=== PATIENT | female | born 1965 | race African-American/Black ===

== ENCOUNTER 2016-10-03 10:16 | Day surgery (SDC) | payer MEDICARE, OTHER ==
[2016-09-29 15:41] VITALS: BMI 35.5
[~2016-10-03 10:16] MED LIST: LACTATED RINGERS 1,000 ML IV SCH
[2016-10-03] MEDS ORDERED: LIDOCAINE 1% 20 ML VIAL (10MG/ML) FOR IV START INTRADERMA ONE (10:30)
[2016-10-03 10:41] VITALS: TEMP 97.9
[2016-10-03] MEDS ORDERED: LIDOCAINE 1% INJ 10MG/ML (20 ML MDV) ONE (11:43)
[2016-10-03] MEDS ORDERED: PROPOFOL 10 MG/ML 20 ML VIAL IV ONE (11:43)
--- NOTE | 2016-10-03 12:08 | P.PCN ---
Date of Procedure: 10/03/16 Procedure(s) Performed: Procedure: Total colonoscopy. Preoperative diagnosis: Change in bowel habits. Postoperative diagnosis: Exam within normal limits. Preparation: HalfLytely prep. Sedation: Was provided by anesthesia. Brief clinical history: The patient is a 51-year-old female who is referred for this evaluation because of some change in bowel habits in the form of occasional looser stools. She has rare episodes of bleeding per rectum, mostly on the toilet tissue. She has no anemia or family history of colon cancer. This would be her first colonoscopy. Procedure: With the patient on her left lateral decubitus position and after informed consent and adequate sedation, the perianal area was inspected and it did not show any fissures or fistulas. There were no masses felt on digital rectal examination. The Olympus CFQ 160L video colonoscope was then inserted in the rectum in the usual fashion and advanced to the cecum. The mucosa appeared healthy. No polyps or tumors were seen or any obvious diverticular disease or other pathology. I retroflexed the endoscope in the rectum before the endoscope was withdrawn. Anal papillae were slightly prominent but there was no bleeding or other pathology. The patient tolerated the procedure well. Plan: The patient was reassured. Discussed dietary measures. In the absence of family history of colon cancer or findings of polyps today, I recommended repeat exam in 10 years. She will follow-up with you as planned.
[2016-10-03 12:55] VITALS: BP 118/67; PULSE 46; RESP 18
== END 2016-10-03 12:57 | disposition home or self-care (01) ==
LOC: ORWHC2ENDO 10:16
DX: R19.4 Change in bowel habit (principal); K62.5 Hemorrhage of anus and rectum; I10 Essential (primary) hypertension; F17.200 Nicotine dependence, unspecified, uncomplicated; F41.9 Anxiety disorder, unspecified; Z79.899 Other long term (current) drug therapy
CPT/HCPCS: 45378; J2001; J2704

== ENCOUNTER 2016-11-26 15:18 | Emergency (ER) | payer MEDICARE, OTHER ==
[2016-11-26 15:26] VITALS: RESP 18
[2016-11-26] MEDS ORDERED: SODIUM CHLORIDE 0.9% 1,000 ML IV STA (15:52)
[2016-11-26] MEDS ORDERED: IPRATROPIUM-ALBUTEROL 3 ML NEB INHALATION STA (15:52)
[2016-11-26] MEDS ORDERED: methylPREDNISolone SOD SUCCI 125 MG/2 ML VIAL IV STA (15:52)
[2016-11-26 16:16] LABS: Basophils % (A) 1 %; CH 32.4; CHCM 38.4; Eosinophils # (A) 0.4 k/uL (0-0.7); Eosinophils % (A) 5 %; HCT 33.2 % (34.0-46.0); HDW 2.54; HGB 12.1 gm/dL (11.4-16.0); Hyperchromasia Slight; Luc # (Auto) 0.21; Luc % (Auto) 3; Lymphocytes # (A) 2.9 k/uL (1.0-4.8); Lymphocytes % (A) 40 %; MCH 30.9 pg (25.0-35.0); MCHC 36.6 g/dL (31.0-37.0); MCV 84.5 fL (80.0-100.0); Mean Platelet Volume 7.4; Monocytes # (A) 0.5 k/uL (0-1.0); Monocytes % (A) 6 %; Neutrophils # (A) 3.3 k/uL (1.3-7.7); Neutrophils % (A) 45 %; RBC 3.93 m/uL (3.80-5.40); RDW 12.6 % (11.5-15.5); WBC 7.3 k/uL (3.8-10.6); WBC (Perox) 7.11
[2016-11-26 16:36] LABS: ALT 42 U/L (9-52); AST 30 U/L (14-36); Alkaline Phosphatase 79 U/L (38-126); Anion Gap 9 mmol/L; Blood Urea Nitrogen 16 mg/dL (7-17); Calcium 9.6 mg/dL (8.4-10.2); Carbon Dioxide 24 mmol/L (22-30); Chloride 108 mmol/L (98-107); Glucose 98 mg/dL (74-99); Non-African American GFR(MDRD) >60 (>60 ml/min/1.73 sqM); Potassium 4.1 mmol/L (3.5-5.1); Sodium 141 mmol/L (137-145); Total Protein 7.8 g/dL (6.3-8.2)
[2016-11-26] MEDS ORDERED: BENZONATATE 100 MG CAP PO STA (16:39)
--- NOTE | 2016-11-26 16:39 | ED ---
General Adult HPI - General Chief complaint: Upper Respiratory Infection Stated complaint: SOB Time Seen by Provider: 11/26/16 15:48 Source: patient, RN notes reviewed Mode of arrival: ambulatory Limitations: no limitations - History of Present Illness Initial comments: 51-year-old female presents to the emergency department with a chief complaint of cough. Patient states she's had a cough for about the last week or so. Patient states that she is not getting much production with her cough. Patient states that she saw her doctor Antibiotics early cough continues. Patient states she went for an x-ray today and they came here to be evaluated for the cough. Patient states that when she coughs she has some pulling in her ribs and chest area. He states if she moves she has a sling to his chest feels resorted cough is becoming very irritated with her symptoms. Patient states she hasn't had any fever chills this. Patient denies any nausea vomiting. Patient denies any specific chest pain just posterior breath. Patient states she is currently still smoking. Patient states that she wanted the cough to be evaluated and that is why she is here today. Patient states that she is not currently having any other symptoms. Patient denies any recent fever, chills, shortness of breath, chest pain, back pain, abdominal pain, nausea vomiting, numbness or tingling, dysuria or hematuria, constipation or diarrhea, headaches or visual changes, or any other current symptoms. - Related Data Home Medications Medication Instructions Recorded Confirmed Pregabalin [Lyrica] 50 mg PO DAILY 09/29/16 11/26/16 Albuterol Sulfate [Proair Hfa] 2 puff INHALATION RT-Q6H PRN 11/26/16 11/26/16 Hydrochlorothiazide [Hydrodiuril] 25 mg PO DAILY 11/26/16 11/26/16 Multivitamins, Thera [Multivitamin 1 tab PO DAILY 11/26/16 11/26/16 (formulary)] Previous Rx's Medication Instructions Recorded Albuterol Inhaler [Ventolin Hfa 1 - 2 puff INHALATION Q4-6H PRN #1 11/26/16 Inhaler] inhaler Albuterol Nebulized [Ventolin 2.5 mg INHALATION Q4H #20 nebu 11/26/16 Nebulized] predniSONE 50 mg PO DAILY #5 tab 05/21/17 Allergies Allergy/AdvReac Type Severity Reaction Status Date / Time No Known Allergies Allergy Verified 11/26/16 15:51 Review of Systems ROS Statement: Those systems with pertinent positive or pertinent negative responses have been documented in the HPI. ROS Other: All systems not noted in ROS Statement are negative. Past Medical History Past Medical History: Hypertension, Musculoskeletal Disorder History of Any Multi-Drug Resistant Organisms: None Reported Past Surgical History: Appendectomy, Tubal Ligation Past Anesthesia/Blood Transfusion Reactions: No Reported Reaction Past Psychological History: Depression Smoking Status: Current every day smoker Past Alcohol Use History: Daily Past Drug Use History: Marijuana - Past Family History Mother Family Medical History: Cancer General Exam - General Exam Comments Initial Comments: General: The patient is awake and alert, in no distress, and does not appear acutely ill. Eye: Pupils are equal, round and reactive to light, extra-ocular movements are intact; there is normal conjunctiva bilaterally. No signs of icterus. Ears, nose, mouth and throat: There are moist mucous membranes and no oral lesions. Neck: The neck is supple, there is no tenderness. Cardiovascular: There is a regular rate and rhythm. No murmur, rub or gallop is appreciated. Respiratory: Lungs are clear to auscultation, respirations are non-labored, breath sounds are equal. No wheezes, stridor, rales, or rhonchi. Gastrointestinal: Soft, non-distended, non-tender abdomen without masses or organomegaly noted. There is no rebound or guarding present. No CVA tenderness. Bowel sounds are unremarkable. Back: There is no tenderness to palpation in the midline. There is no obvious deformity. No rashes noted. Musculoskeletal: Normal ROM, no tenderness, There is no pedal edema. There is no calf tenderness or swelling. Sensation intact. Pulses equal bilaterally 2+. Neurological: CN II-XII intact, There are no obvious motor or sensory deficits. Coordination appears grossly intact. Speech is normal. Skin: Skin is warm and dry and no rashes or lesions are noted. Psychiatric: Cooperative, appropriate mood & affect, normal judgment. Limitations: no limitations Course Vital Signs 11/26/16 11/26/16 11/26/16 15:21 16:03 16:13 Temperature 98.2 F Pulse Rate 61 88 88 Respiratory 18 Rate Blood Pressure 134/65 O2 Sat by Pulse 100 Oximetry Medical Decision Making - Medical Decision Making 51-year-old female presents complaining of cough. Patient's chest x-ray does out patiently lab work was reviewed. At this time patient is a much better after breathing treatment. We discussed patient most likely suffering from acute bronchitis. We discussed with [facility] AND GIVE HER A NEBULIZER FOR HOME WITH BREATHING TREATMENTS. WE DISCUSSED RETURN PARAMETERS AND FOLLOW-UP AND ALL PATIENT'S QUESTIONS. SHE STATED THAT SHE UNDERSTOOD AND SHE IS IN AGREEMENT WITH PLAN. SHE'LL BE DISCHARGED HOME. - Lab Data Result diagrams: 11/26/16 16:00 11/26/16 16:00 Lab Results 11/26/16 11/26/16 Range/Units 16:00 16:00 WBC 7.3 (3.8-10.6) k/uL RBC 3.93 (3.80-5.40) m/uL Hgb 12.1 (11.4-16.0) gm/dL Hct 33.2 L (34.0-46.0) % MCV 84.5 (80.0-100.0) fL MCH 30.9 (25.0-35.0) pg MCHC 36.6 (31.0-37.0) g/dL RDW 12.6 (11.5-15.5) % Plt Count 260 (150-450) k/uL Neutrophils % 45 % Lymphocytes % 40 % Monocytes % 6 % Eosinophils % 5 % Basophils % 1 % Neutrophils # 3.3 (1.3-7.7) k/uL Lymphocytes # 2.9 (1.0-4.8) k/uL Monocytes # 0.5 (0-1.0) k/uL Eosinophils # 0.4 (0-0.7) k/uL Basophils # 0.0 (0-0.2) k/uL Hyperchromasia Slight Sodium 141 (137-145) mmol/L Potassium 4.1 (3.5-5.1) mmol/L Chloride 108 H (98-107) mmol/L Carbon Dioxide 24 (22-30) mmol/L Anion Gap 9 mmol/L BUN 16 (7-17) mg/dL Creatinine 0.76 (0.52-1.04) mg/dL Est GFR (MDRD) Af Amer >60 (>60 ml/min/1.73 sqM) Est GFR (MDRD) Non-Af >60 (>60 ml/min/1.73 sqM) Glucose 98 (74-99) mg/dL Calcium 9.6 (8.4-10.2) mg/dL Total Bilirubin 1.0 (0.2-1.3) mg/dL AST 30 (14-36) U/L ALT 42 (9-52) U/L Alkaline Phosphatase 79 (38-126) U/L Total Protein 7.8 (6.3-8.2) g/dL Albumin 4.1 (3.5-5.0) g/dL - EKG Data -: EKG Interpreted by Me 11/26/16 16:38 Sinus bradycardia with sinus arrhythmia 54 bpm, normal axis, no atopy, no S-T depressions or elevations, - Radiology Data Radiology results: report reviewed, image reviewed Disposition Clinical Impression: Acute bronchitis Disposition: HOME SELF-CARE Condition: Stable Instructions: Acute Bronchitis (ED) Additional Instructions: Please use medication as discussed. Please follow up with family doctor if symptoms have not improved over the next two days. Please return to the emergency room if your symptoms increase or worsen or for any other concerns. Prescriptions: Albuterol Inhaler [Ventolin Hfa Inhaler] 1 - 2 puff INHALATION Q4-6H PRN #1 inhaler PRN Reason: Cough Albuterol Nebulized [Ventolin Nebulized] 2.5 mg INHALATION Q4H #20 nebu predniSONE 50 mg PO DAILY #5 tab Referrals: Alejandra Rivera MD [Primary Care Provider] - 1-2 days Time of Disposition: 16:44
[2016-11-26 17:04] VITALS: BP 141/97; PULSE 56; TEMP 98
== END 2016-11-26 17:02 | disposition home or self-care (01) ==
LOC: EC 15:18
DX: J20.9 Acute bronchitis, unspecified (principal); R06.02 Shortness of breath; I10 Essential (primary) hypertension; Z79.899 Other long term (current) drug therapy; F17.200 Nicotine dependence, unspecified, uncomplicated
CPT/HCPCS: 36415; 94640; 80053; 85025; 87040; 99283; 96374; 96361; J2930; 71020; 93005

== ENCOUNTER → 2016-11-26 | Outpatient (CLI) | payer MEDICARE, OTHER ==
--- NOTE | 2016-11-26 16:04 | XR ---
EXAMINATION TYPE: XR chest 2V DATE OF EXAM: 11/26/2016 3:16 PM COMPARISON: NONE INDICATION: Right-sided chest pain TECHNIQUE: 2 view chest x-ray FINDINGS: The heart size is normal. The pulmonary vasculature is normal. The lungs are clear. IMPRESSION: 1. No acute pulmonary process.
== END ==
LOC: RADXRMAIN 14:57
PROVIDERS: ATTEND Internal Medicine
DX: J44.9 Chronic obstructive pulmonary disease, unspecified (principal)
CPT/HCPCS: 71020

== ENCOUNTER 2017-02-15 01:06 | Emergency (ER) | payer MEDICARE, OTHER ==
[2017-02-15 01:13] VITALS: PULSE 54
--- NOTE | 2017-02-15 02:19 | XR ---
EXAM: XR Right Knee, 3 views CLINICAL HISTORY: Pain TECHNIQUE: Three views of the right knee. COMPARISON: No relevant prior studies available. FINDINGS: Bones/joints: Tricompartment degenerative changes. No acute fracture or traumatic malalignment. Small joint effusion. Soft tissues: Unremarkable. IMPRESSION: No acute findings.
--- NOTE | 2017-02-15 02:32 | ED ---
Extremity Problem HPI - General Chief complaint: Extremity Problem,Nontraumatic Stated complaint: Knee Pain Time Seen by Provider: 02/15/17 01:24 Source: patient, RN notes reviewed, old records reviewed Mode of arrival: ambulatory Limitations: no limitations - History of Present Illness Initial comments: This is a 51 year old female with CC of right knee pain for the past evening that has worsened. She reports to having this knee pain before. She reports that she was walking and biking more frequently. Denies any calf pain, denies significant swelling below the knee. She reports some minor swelling with medial upper knee. - Related Data Home Medications Medication Instructions Recorded Confirmed Pregabalin [Lyrica] 50 mg PO DAILY 09/29/16 02/15/17 Albuterol Sulfate [Proair Hfa] 2 puff INHALATION RT-Q6H PRN 11/26/16 02/15/17 Hydrochlorothiazide [Hydrodiuril] 25 mg PO DAILY 11/26/16 02/15/17 Multivitamins, Thera [Multivitamin 1 tab PO DAILY 11/26/16 02/15/17 (formulary)] Albuterol Inhaler [Ventolin Hfa 1 - 2 puff INHALATION Q4-6H PRN 02/13/17 Inhaler] Albuterol Nebulized [Ventolin 2.5 mg INHALATION Q4H PRN 02/13/17 02/15/17 Nebulized] Previous Rx's Medication Instructions Recorded Acetaminophen-Codeine 300-30mg 1 tab PO Q6H PRN #12 tablet 02/15/17 [Tylenol #3] Naproxen 500 mg PO BID #30 tablet 02/15/17 Allergies Allergy/AdvReac Type Severity Reaction Status Date / Time Penicillins Allergy Rash/Hives Verified 02/15/17 11:02 Review of Systems ROS Statement: Those systems with pertinent positive or pertinent negative responses have been documented in the HPI. ROS Other: All systems not noted in ROS Statement are negative. Past Medical History Past Medical History: COPD, GERD/Reflux, Hypertension, Musculoskeletal Disorder , Osteoarthritis (OA) Additional Past Medical History / Comment(s): 'ENLARGED KIDNEY" PER PATIENT , OCCASIONAL BLOOD IN STOOL History of Any Multi-Drug Resistant Organisms: None Reported Past Surgical History: Appendectomy, Tubal Ligation Additional Past Surgical History / Comment(s): COLONOSCOPY Past Anesthesia/Blood Transfusion Reactions: No Reported Reaction Past Psychological History: Depression Smoking Status: Current every day smoker Past Alcohol Use History: Heavy Past Drug Use History: None Reported - Past Family History Mother Family Medical History: Cancer General Exam Limitations: no limitations General appearance: alert, in no apparent distress Head exam: Present: atraumatic, normocephalic, normal inspection Eye exam: Present: normal appearance, PERRL, EOMI. Absent: scleral icterus, conjunctival injection, periorbital swelling ENT exam: Present: normal exam, mucous membranes moist Neck exam: Present: normal inspection. Absent: tenderness, meningismus, lymphadenopathy Respiratory exam: Present: normal lung sounds bilaterally. Absent: respiratory distress, wheezes, rales, rhonchi, stridor Cardiovascular Exam: Present: regular rate, normal rhythm, normal heart sounds. Absent: systolic murmur, diastolic murmur, rubs, gallop, clicks GI/Abdominal exam: Present: soft, normal bowel sounds. Absent: distended, tenderness, guarding, rebound, rigid Extremities exam: Present: normal inspection, full ROM, normal capillary refill. Absent: tenderness, pedal edema, joint swelling, calf tenderness Right Hip exam: Present: normal inspection, full ROM Upper Leg exam: Present: normal inspection, full ROM Knee exam: Present: swelling (minor swelling over medial knee. ). Absent: normal inspection, full ROM Lower Leg exam: Present: normal inspection, full ROM Ankle exam: Present: normal inspection, full ROM Foot/Toe exam: Present: normal inspection, full ROM Neurovascular tendon exam: Present: no vascular compromise Back exam: Present: normal inspection Neurological exam: Present: alert, oriented X3, CN II-XII intact Psychiatric exam: Present: normal affect, normal mood Skin exam: Present: warm, dry, intact, normal color. Absent: rash Course Vital Signs 02/15/17 02/15/17 01:11 03:00 Temperature 97.6 F 97.5 F L Pulse Rate 54 L 54 L Respiratory 18 16 Rate Blood Pressure 137/64 143/69 O2 Sat by Pulse 98 99 Oximetry Medical Decision Making - Medical Decision Making This is a 51 year old female with CC of right knee pain for the past evening that has worsened. She reports to having this knee pain before. She reports that she was walking and biking more frequently. Denies any calf pain, denies significant swelling below the knee. She reports some minor swelling with medial upper knee. Patient has full range of motion of the knee. Minor swelling over medial knee. Patient has no calf tenderness. Patient knee xray is negative for acute process. Patient likely has mensicual irritation due to frequent walking and bicycling. Patient will be discharged with short course of pain medication and motrin. Patient understands treatment plan adn will comply. - Radiology Data Radiology results: report reviewed Xray negative for any acute process. Disposition Clinical Impression: Effusion, right knee Disposition: HOME SELF-CARE Condition: Good Instructions: Knee Sprain (ED), Knee Pain (ED) Additional Instructions: Patient is to rest, ice and elevated 70. Take medications as directed. Return to emergency department if any alarming signs or symptoms occur. Prescriptions: Acetaminophen-Codeine 300-30mg [Tylenol #3] 1 tab PO Q6H PRN #12 tablet PRN Reason: Pain Naproxen 500 mg PO BID #30 tablet Referrals: Alejandra Rivera MD [Primary Care Provider] - 1-2 days Denice Ocampo MD [STAFF PHYSICIAN] - 1-2 days Bon Jiménez MD [STAFF PHYSICIAN] - 1-2 days Time of Disposition: 02:30
[2017-02-15] MEDS ORDERED: ACET/COD 300 MG/30 MG STARTER PACK 6 TAB BTL PO STA (02:42)
[2017-02-15 03:01] VITALS: BP 143/69; RESP 16; TEMP 97.5
== END 2017-02-15 03:01 | disposition home or self-care (01) ==
LOC: EC 01:06
DX: M25.461 Effusion, right knee (principal); I10 Essential (primary) hypertension; F17.200 Nicotine dependence, unspecified, uncomplicated; Z88.0 Allergy status to penicillin; Z79.899 Other long term (current) drug therapy
CPT/HCPCS: 99284

== ENCOUNTER 2017-02-15 09:23 | Day surgery (SDC) | payer MEDICARE, OTHER ==
[2017-02-13 14:39] VITALS: BMI 37.5
[2017-02-15] MEDS ORDERED: PROPOFOL 10 MG/ML 20 ML VIAL IV ONE ×2 (09:48→11:33)
[2017-02-15] MEDS ORDERED: LIDOCAINE 1% INJ 10MG/ML (20 ML MDV) ONE ×2 (09:48→11:33)
[2017-02-15 11:02] VITALS: RESP 16; TEMP 99
[2017-02-15] MEDS ORDERED: LIDOCAINE 1% 20 ML VIAL (10MG/ML) FOR IV START INTRADERMA ONE (11:09)
--- NOTE | 2017-02-15 11:51 | P.PCN ---
Date of Procedure: 02/15/17 Preoperative Diagnosis: Postoperative Diagnosis: Procedure(s) Performed: Procedure: Esophagogastroduodenoscopy and biopsy. Preoperative diagnosis: Abdominal pain. Postoperative diagnosis: 1. Small sliding hiatal hernia with no obvious esophagitis or complicated reflux disease. 2. Mild antral gastritis. Preparation sedation: Was provided by anesthesia. Brief clinical history: The patient is a 51-year-old female who is referred for this evaluation because of persistent issues with abdominal discomfort. She had a colonoscopy in September of this year which was normal. The patient continues to describe burning in her abdomen and after having bowel movements. She is referred for this evaluation for suspected peptic ulcer disease or reflux disease. Procedure: With the patient on her left lateral decubitus position and after informed consent and adequate sedation, I passed the Olympus-GIF 160 video upper endoscope through the cricopharyngeus down the esophagus. GE junction was around 36 cm from the incisors and there was a small sliding hiatal hernia. The esophagus did not show any obvious erosions, ulcers, strictures or Hanson 's esophagus. The endoscope was then passed into the stomach which was insufflated with air and inspected in detail including the retroflex view in the cardia. There was mottling, erythema and submucosal hemorrhage in the antrum in the immediate prepyloric area, but there were no ulcers or erosions. Pyloric channel did not show any ulcers. Duodenal bulb, post bulbar area and descending duodenum appeared within normal limits. Because of her symptoms, I obtained biopsies from the small intestine, in addition to biopsies from the antrum and esophagus then the endoscope was withdrawn. The patient tolerated the procedure well. Plan: The patient was reassured. Will await biopsy results. She will follow- up with you as planned and further plans can be made based on her course and biopsy results. Implants: Indications for Procedure: Operative Findings: Description of Procedure:
[2017-02-15 12:05] VITALS: BP 114/68; PULSE 44
== END 2017-02-15 12:32 | disposition home or self-care (01) ==
LOC: ORWHC2ENDO 09:23
DX: K29.50 Unspecified chronic gastritis without bleeding (principal); K44.9 Diaphragmatic hernia without obstruction or gangrene; K21.9 Gastro-esophageal reflux disease without esophagitis; J44.9 Chronic obstructive pulmonary disease, unspecified; I10 Essential (primary) hypertension; M19.90 Unspecified osteoarthritis, unspecified site; Z88.0 Allergy status to penicillin; Z72.0 Tobacco use; Z79.891 Long term (current) use of opiate analgesic; Z79.899 Other long term (current) drug therapy
CPT/HCPCS: 99284; 88305; 88342; 73562; 43239; J2001; J2704

== ENCOUNTER 2017-04-16 08:55 | Emergency (ER) | payer MEDICARE, OTHER ==
[2017-04-16 09:08] VITALS: RESP 18; TEMP 97.6
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
[2017-04-16 10:19] VITALS: BP 160/86; PULSE 57
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
--- NOTE | 2017-04-18 05:28 | PCN ---
Documentation Clarification OP Dear Tai Britton PA-C Please do addendum to ED report for missing lip laceration length Thank you, Jann Patel Eligibility Supervisor If you have any questions, please contact [facility] at [phone] [facility]
== END 2017-04-16 12:00 | disposition home or self-care (01) ==
LOC: EC 08:55
DX: S02.5XXA Fracture of tooth (traumatic), initial encounter for closed fracture (principal); S01.511A Laceration without foreign body of lip, initial encounter; S00.83XA Contusion of other part of head, initial encounter; M25.561 Pain in right knee; M54.2 Cervicalgia; I10 Essential (primary) hypertension; F17.200 Nicotine dependence, unspecified, uncomplicated; Z79.899 Other long term (current) drug therapy; Z88.0 Allergy status to penicillin; V23.4XXA Motorcycle driver injured in collision with car, pick-up truck or van in traffic accident, initial encounter; Y92.410 Unspecified street and highway as the place of occurrence of the external cause; Y93.89 Activity, other specified
CPT/HCPCS: 72050; 99284

== ENCOUNTER 2017-04-20 16:53 | Emergency (ER) | payer MEDICARE, OTHER ==
[2017-04-20 17:13] VITALS: BP 169/74; PULSE 69; RESP 18; TEMP 98.2
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
--- NOTE | 2017-04-20 17:37 | XR ---
EXAMINATION TYPE: XR knee complete RT DATE OF EXAM: 04/20/2017 COMPARISON: 02/15/2017 HISTORY: Knee pain TECHNIQUE: 3 views FINDINGS: There is narrowing of the medial joint space. There is hypertrophic spurring of the femoral and tibial condyles. There is small knee joint effusion. There is spurring on the patella. I see no fracture. IMPRESSION: Hypertrophic osteoarthritis with joint effusion. No fracture seen. No significant change compared to old exam.
[2017-04-20] MEDS ORDERED: HYDROcodone/APAP 5-325MG 1 EACH TAB PO STA (17:41)
== END 2017-04-20 18:38 | disposition home or self-care (01) ==
LOC: EC 16:53
DX: S00.83XA Contusion of other part of head, initial encounter (principal); M25.561 Pain in right knee; J44.9 Chronic obstructive pulmonary disease, unspecified; K21.9 Gastro-esophageal reflux disease without esophagitis; I10 Essential (primary) hypertension; M19.90 Unspecified osteoarthritis, unspecified site; F32.9 Major depressive disorder, single episode, unspecified; F17.200 Nicotine dependence, unspecified, uncomplicated; Z79.899 Other long term (current) drug therapy; Z88.0 Allergy status to penicillin; V23.4XXA Motorcycle driver injured in collision with car, pick-up truck or van in traffic accident, initial encounter; Y92.410 Unspecified street and highway as the place of occurrence of the external cause
CPT/HCPCS: 99283

== ENCOUNTER → 2017-07-26 | Outpatient (CLI) | payer OTHER ==
--- NOTE | 2017-07-26 13:07 | XR ---
EXAMINATION TYPE: XR hand complete LT DATE OF EXAM: 07/26/2017 COMPARISON: NONE HISTORY: 51-year-old female crush injury to the fifth digit and pain TECHNIQUE: 4 views FINDINGS: There is soft tissue swelling to the tip of the fifth finger. Only on the oblique views, a subtle saba tically oriented lucency is seen involving the distal phalangeal tuft. Otherwise, no displaced fractu re. IMPRESSION: Soft tissue injury to the distal aspect of the fifth finger. A lucency is seen extending vertically t hrough the tuft on the oblique images and a subtle nondisplaced fracture is difficult to exclude.
== END | disposition home or self-care (01) ==
LOC: RADXRMAIN 12:40
PROVIDERS: ATTEND Emergency Medicine
DX: S61.207A Unspecified open wound of left little finger without damage to nail, initial encounter (principal)

== ENCOUNTER → 2017-07-27 | Outpatient (CLI) | payer OTHER ==
--- NOTE | 2017-07-27 13:50 | XR ---
Lumbar spine HISTORY: Back pain 3 views of the lumbar spine Lumbar vertebral bodies show preserved height and alignment. Bone mineralization is reduced. There is multilevel spondylosis and loss of disc height at intervertebral levels especially at L4-5. Sclerosi s present in the posterior elements of the lumbar spine. There are vascular calcifications noted. IMPRESSION: Degenerative disc disease, osteopenia, facet arthropathy.
== END | disposition home or self-care (01) ==
LOC: RADXRMAIN 12:55
PROVIDERS: ATTEND Emergency Medicine
DX: M51.36 Other intervertebral disc degeneration, lumbar region (principal); M46.86 Other specified inflammatory spondylopathies, lumbar region; M85.88 Other specified disorders of bone density and structure, other site
CPT/HCPCS: 72100

== ENCOUNTER 2017-07-28 16:01 | Emergency (ER) | payer MEDICARE, OTHER ==
[2017-07-28] MEDS ORDERED: HYDROcodone/APAP 5-325MG 1 EACH TAB PO STA (16:51)
[2017-07-28] MEDS ORDERED: CYCLOBENZAPRINE 10 MG TAB PO STA (16:51)
--- NOTE | 2017-07-28 16:55 | ED ---
Back Pain HPI - General Chief Complaint: Back Pain/Injury Stated Complaint: IH-Back Pain Time Seen by Provider: 07/28/17 16:40 Source: patient, RN notes reviewed Mode of arrival: ambulatory Limitations: no limitations - History of Present Illness Initial Comments: This a 52-year-old female presents emergency from chief complaint of back pain. Patient had an injury other day was seen at [facility] yesterday had x-rays. Patient complains of low back pain, left hand fifth digit pain. She states that she was given antibiotics, Motrin. States she has small cut her finger. Patient states ibuprofen is not helping her back pain she has worsening pain unrelieved with the medication. Patient denies any bowel bladder incontinence or retention. Denies any abdominal pain. She is wearing back brace because she states that helps. - Related Data Home Medications Medication Instructions Recorded Confirmed Hydrochlorothiazide [Hydrodiuril] 25 mg PO DAILY 11/26/16 04/20/17 Multivitamins, Thera [Multivitamin 1 tab PO DAILY 11/26/16 04/20/17 (formulary)] Albuterol Inhaler [Ventolin Hfa 1 - 2 puff INHALATION Q4-6H PRN 02/13/17 Inhaler] ALPRAZolam [Xanax] 0.5 mg PO DAILY PRN 04/16/17 04/20/17 Baclofen [Lioresal] 10 mg PO HS PRN 04/16/17 04/20/17 HYDROcodone/APAP 5-325MG [[place] 1 tab PO DAILY PRN 04/16/17 04/20/17 5-325] Loperamide [Imodium] 2 mg PO QID PRN 04/16/17 04/20/17 Losartan Potassium [Cozaar] 100 mg PO DAILY 04/16/17 04/20/17 Omeprazole [PriLOSEC] 20 mg PO AC-BID PRN 04/16/17 04/20/17 Pregabalin [Lyrica] 100 mg PO BID 04/16/17 04/20/17 Acetaminophen-Codeine 300-30mg 1 tab PO Q6H PRN 04/20/17 04/20/17 [Tylenol #3] Previous Rx's Medication Instructions Recorded Ibuprofen [Motrin] 600 mg PO Q6HR PRN #30 day 04/16/17 Cyclobenzaprine [Flexeril] 5 mg PO TID PRN #15 tablet 07/28/17 Hydrocodone/Acetaminophen [[place] 1 tab PO Q8HR PRN #15 tab 07/28/17 5-325] Allergies Allergy/AdvReac Type Severity Reaction Status Date / Time Penicillins Allergy Rash/Hives Verified 07/28/17 16:19 Review of Systems ROS Statement: Those systems with pertinent positive or pertinent negative responses have been documented in the HPI. ROS Other: All systems not noted in ROS Statement are negative. Past Medical History Past Medical History: COPD, GERD/Reflux, Hypertension, Musculoskeletal Disorder , Osteoarthritis (OA) Additional Past Medical History / Comment(s): 'ENLARGED KIDNEY" PER PATIENT , OCCASIONAL BLOOD IN STOOL History of Any Multi-Drug Resistant Organisms: None Reported Past Surgical History: Appendectomy, Tubal Ligation Additional Past Surgical History / Comment(s): COLONOSCOPY Past Anesthesia/Blood Transfusion Reactions: No Reported Reaction Past Psychological History: Depression Smoking Status: Current every day smoker Past Alcohol Use History: Occasional Past Drug Use History: Marijuana - Past Family History Mother Family Medical History: Cancer General Exam Limitations: no limitations General appearance: alert, in no apparent distress Respiratory exam: Present: normal lung sounds bilaterally. Absent: respiratory distress, wheezes, rales, rhonchi, stridor Cardiovascular Exam: Present: regular rate, normal rhythm, normal heart sounds. Absent: systolic murmur, diastolic murmur, rubs, gallop, clicks GI/Abdominal exam: Present: soft, normal bowel sounds. Absent: distended, tenderness, guarding, rebound, rigid Back exam: Present: full ROM, tenderness (Tenderness diffusely lumbar region), paraspinal tenderness, other (Pain with bilateral lower extremity movement). Absent: vertebral tenderness Neurological exam: Present: alert, oriented X3, CN II-XII intact, reflexes normal. Absent: motor sensory deficit Skin exam: Present: warm, dry, intact, normal color. Absent: rash Course Vital Signs 07/28/17 16:15 Temperature 97.3 F L Pulse Rate 50 L Respiratory 20 Rate Blood Pressure 147/65 O2 Sat by Pulse 99 Oximetry Medical Decision Making - Medical Decision Making 52-year-old female presented for low back pain. She has had prior exam x-rays reviewed patient has a lumbar strain will be given a short course of pain medication and discharge. Disposition Clinical Impression: Strain of lumbar region Disposition: HOME SELF-CARE Condition: Stable Instructions: Acute Low Back Pain (ED) Additional Instructions: Please return to the Emergency Department if symptoms worsen or any other concerns. Prescriptions: Cyclobenzaprine [Flexeril] 5 mg PO TID PRN #15 tablet PRN Reason: Muscle Spasm Hydrocodone/Acetaminophen [[place] 5-325] 1 tab PO Q8HR PRN #15 tab PRN Reason: Pain Referrals: Alejandra Rivera MD [Primary Care Provider] - 1-2 days Time of Disposition: 16:55
[2017-07-28 17:46] VITALS: BP 130/79; PULSE 80; RESP 16; TEMP 98
== END 2017-07-28 17:45 | disposition home or self-care (01) ==
LOC: EC 16:01
DX: S39.012A Strain of muscle, fascia and tendon of lower back, initial encounter (principal); M79.645 Pain in left finger(s); I10 Essential (primary) hypertension; M19.90 Unspecified osteoarthritis, unspecified site; F17.200 Nicotine dependence, unspecified, uncomplicated; Z79.899 Other long term (current) drug therapy; Z88.0 Allergy status to penicillin; Y92.69 Other specified industrial and construction area as the place of occurrence of the external cause; Y99.0 Civilian activity done for income or pay
CPT/HCPCS: 99283

== ENCOUNTER 2017-08-02 04:23 | Emergency (ER) | payer MEDICARE, OTHER ==
[2017-08-02 04:33] VITALS: TEMP 97.3
[2017-08-02] MEDS ORDERED: ORPHENADRINE 30 MG/ML 2 ML VIAL IM STA (05:00)
[2017-08-02] MEDS ORDERED: KETOROLAC 60 MG/2 ML VIAL IM STA (05:00)
--- NOTE | 2017-08-02 05:33 | CT ---
EXAM: CT Lumbar Spine Without Intravenous Contrast CLINICAL HISTORY: Reason: Pain TECHNIQUE: Axial computed tomography images of the lumbar spine without intravenous contrast. CTDI is 43.60 mGy and DLP is 1274.10 mGy-cm. This CT exam was performed using one or more of the following dose reduction techniques: automated exposure control, adjustment of the mA and/or kV according to patient size, and/or use of iterative reconstruction technique. COMPARISON: 07/27/17 FINDINGS: Disc height loss at L4-5 with posterior disc protrusion. Minimal 2 mm anterolisthesis of L4 on L5. Bilateral facet degenerative changes are seen at this level. Posterior disc protrusion also seen at L5-S1. There is disc height loss at L1-2 with anterior disc spur complex. Prominent anterior syndesmophytes also demonstrated at T11-12 and T12-L1. IMPRESSION: No fracture. Multilevel spondylotic changes with degenerative grade 1 anterolisthesis of L4-5.
--- NOTE | 2017-08-02 05:36 | ED ---
Back Pain HPI - General Chief Complaint: Back Pain/Injury Stated Complaint: FLANK PAIN Time Seen by Provider: 08/02/17 04:37 Source: patient Limitations: no limitations - History of Present Illness Initial Comments: This patient is a 52-year-old woman who states that she is continuing to have back pain today. The patient states that she injured her back at work approximately 6 days ago, when a heavy roll of carpet she was moving fell. She has been seen and had x-rays at that time that were negative. The patient was given prescription for ibuprofen but states this is only helping a little. The patient is denying weakness or numbness of the extremities, change in bladder or bowel function, saddle anesthesia. MD Complaint: back pain -: days(s) Similar Symptoms Previously: Yes Place: work Radiation: none Severity: severe Quality: aching Consistency: constant Improves With: none Worsens With: movement Context: turning/twisting, trauma Associated Symptoms: denies other symptoms - Related Data Home Medications Medication Instructions Recorded Confirmed Hydrochlorothiazide [Hydrodiuril] 25 mg PO DAILY 11/26/16 08/02/17 Multivitamins, Thera [Multivitamin 1 tab PO DAILY 11/26/16 08/02/17 (formulary)] Cephalexin [Keflex] 500 mg PO DAILY 07/28/17 08/02/17 Previous Rx's Medication Instructions Recorded Ibuprofen [Motrin] 600 mg PO Q6HR PRN #30 day 04/16/17 Ibuprofen [Motrin] 600 mg PO Q8HR PRN #20 tab 08/02/17 Methocarbamol [Robaxin-750] 750 mg PO TID PRN #30 tablet 08/02/17 Allergies Allergy/AdvReac Type Severity Reaction Status Date / Time Penicillins Allergy Rash/Hives Verified 07/28/17 17:41 Review of Systems ROS Statement: Those systems with pertinent positive or pertinent negative responses have been documented in the HPI. ROS Other: All systems not noted in ROS Statement are negative. Constitutional: Denies: fever, chills, weakness Respiratory: Denies: cough, dyspnea Cardiovascular: Denies: chest pain Gastrointestinal: Denies: abdominal pain, nausea, vomiting, diarrhea, constipation Genitourinary: Denies: dysuria, hematuria Musculoskeletal: Reports: as per HPI, back pain Skin: Denies: rash Neurological: Denies: headache, weakness, numbness, paresthesias Past Medical History Past Medical History: COPD, GERD/Reflux, Hypertension, Musculoskeletal Disorder , Osteoarthritis (OA) Additional Past Medical History / Comment(s): 'ENLARGED KIDNEY" PER PATIENT , OCCASIONAL BLOOD IN STOOL History of Any Multi-Drug Resistant Organisms: None Reported Past Surgical History: Appendectomy, Tubal Ligation Additional Past Surgical History / Comment(s): COLONOSCOPY Past Anesthesia/Blood Transfusion Reactions: No Reported Reaction Past Psychological History: Depression Smoking Status: Current every day smoker Past Alcohol Use History: Occasional Past Drug Use History: Marijuana - Past Family History Mother Family Medical History: Cancer General Exam Limitations: no limitations General appearance: alert, in no apparent distress, obese Head exam: Present: atraumatic, normocephalic Neck exam: Present: normal inspection, full ROM. Absent: tenderness Respiratory exam: Present: normal lung sounds bilaterally. Absent: respiratory distress, wheezes, rales, rhonchi, stridor, chest wall tenderness Cardiovascular Exam: Present: regular rate, normal rhythm, normal heart sounds. Absent: systolic murmur, diastolic murmur, rubs, gallop GI/Abdominal exam: Present: soft. Absent: tenderness, guarding, rebound, pulsatile mass Back exam: Present: normal inspection, paraspinal tenderness. Absent: CVA tenderness (R), CVA tenderness (L), vertebral tenderness Neurological exam: Present: alert, normal gait, reflexes normal. Absent: motor sensory deficit Skin exam: Present: warm, dry, intact, normal color. Absent: rash Course Vital Signs 08/02/17 08/02/17 04:27 06:00 Temperature 97.3 F L 97.3 F L Pulse Rate 65 56 L Respiratory 20 18 Rate Blood Pressure 140/71 140/67 O2 Sat by Pulse 100 100 Oximetry Disposition Clinical Impression: Strain of lumbar region Disposition: HOME SELF-CARE Condition: Good Instructions: Acute Low Back Pain (ED) Prescriptions: Ibuprofen [Motrin] 600 mg PO Q8HR PRN #20 tab PRN Reason: Pain Methocarbamol [Robaxin-750] 750 mg PO TID PRN #30 tablet PRN Reason: pain Referrals: Alejandra Rivera MD [Primary Care Provider] - 1-2 days
[2017-08-02 06:02] VITALS: BP 140/67; PULSE 56; RESP 18
== END 2017-08-02 06:00 | disposition home or self-care (01) ==
LOC: EC 04:23
DX: S39.012A Strain of muscle, fascia and tendon of lower back, initial encounter (principal); I10 Essential (primary) hypertension; F17.200 Nicotine dependence, unspecified, uncomplicated; Z88.0 Allergy status to penicillin; Z79.899 Other long term (current) drug therapy; X50.1XXA Overexertion from prolonged static or awkward postures, initial encounter; Y92.69 Other specified industrial and construction area as the place of occurrence of the external cause; Y99.0 Civilian activity done for income or pay
CPT/HCPCS: 72131; 99283; 96372 ×2; J2360; J1885

== ENCOUNTER 2017-08-02 11:37 | Emergency (ER) | payer MEDICARE, OTHER ==
--- NOTE | 2017-08-02 13:58 | ED ---
General Adult HPI - General Chief complaint: Abdominal Pain Stated complaint: BACK AND SIDE PAIN Time Seen by Provider: 08/02/17 13:21 Source: patient, RN notes reviewed, old records reviewed Mode of arrival: wheelchair Limitations: no limitations - History of Present Illness Initial comments: Patient is a 52-year-old female who presents emergency room today with chief complaint of right-sided lower back pain. Patient does admit to an injury at work that occurred on July 27. She states that she was using a lift when it picked her up. She states that it did not knock her down but she's had pain on lower back since. She states worse with movements specifically of the right leg. She does admit to some pain that radiates into the top of the right thigh. She states she was seen here early this morning. She states that she did have a CT obtained. Patient states that she also had ultrasound today. States with the family doctor who ordered this. Patient was given a pain shot of medication went home and slept which will cover some pain so the family doctor and had an ultrasound obtained. She states she was having increased pain after ultrasound came here to the emergency room. She states she has not, the prescriptions filled that she was given earlier this morning. She is not taking any pain medicine sounds showed her shot this morning. Patient denies any recent fever, chills, shortness of breath, chest pain, abdominal pain, saddle anesthesia, bowel or bladder incontinence retention, nausea or vomiting, numbness or tingling, dysuria or hematuria, constipation or diarrhea, headaches or visual changes, or any other complaints. - Related Data Home Medications Medication Instructions Recorded Confirmed Hydrochlorothiazide [Hydrodiuril] 25 mg PO DAILY 11/26/16 08/02/17 Multivitamins, Thera [Multivitamin 1 tab PO DAILY 11/26/16 08/02/17 (formulary)] Previous Rx's Medication Instructions Recorded Ibuprofen [Motrin] 600 mg PO Q8HR PRN #20 tab 08/02/17 Methocarbamol [Robaxin-750] 750 mg PO TID PRN #30 tablet 08/02/17 Allergies Allergy/AdvReac Type Severity Reaction Status Date / Time Penicillins Allergy Rash/Hives Verified 08/02/17 12:08 Review of Systems ROS Statement: Those systems with pertinent positive or pertinent negative responses have been documented in the HPI. ROS Other: All systems not noted in ROS Statement are negative. Past Medical History Past Medical History: COPD, GERD/Reflux, Hypertension, Musculoskeletal Disorder , Osteoarthritis (OA) Additional Past Medical History / Comment(s): 'ENLARGED KIDNEY" PER PATIENT , OCCASIONAL BLOOD IN STOOL History of Any Multi-Drug Resistant Organisms: None Reported Past Surgical History: Appendectomy, Tubal Ligation Additional Past Surgical History / Comment(s): COLONOSCOPY Past Anesthesia/Blood Transfusion Reactions: No Reported Reaction Past Psychological History: Depression Smoking Status: Current every day smoker Past Alcohol Use History: None Reported, Occasional Past Drug Use History: None Reported - Past Family History Mother Family Medical History: Cancer General Exam - General Exam Comments Initial Comments: General: The patient is awake and alert, in no distress, and does not appear acutely ill. Eye: Pupils are equal, round and reactive to light, extra-ocular movements are intact. No nystagmus. There is normal conjunctiva bilaterally. No signs of icterus. Ears, nose, mouth and throat: There are moist mucous membranes and no oral lesions. Neck: The neck is supple, there is no tenderness or JVD. Cardiovascular: There is a regular rate and rhythm. No murmur, rub or gallop is appreciated. Respiratory: Lungs are clear to auscultation, respirations are non-labored, breath sounds are equal. No wheezes, stridor, rales, or rhonchi. Gastrointestinal: Soft, non-distended, non-tender abdomen without masses or organomegaly noted. There is no rebound or guarding present. No CVA tenderness. Musculoskeletal: Normal ROM. Normal appearance of the thoracic lumbar spine with no step-offs 4 hours. Patient does have paravertebral tenderness on the right side of lumbar spine. Pain reproduced with certain movements of turning and twisting. Strength 5/5. Sensation intact. Pulses equal bilaterally 2+. Neurological: A&O x 3. CN II-XII intact, There are no obvious motor or sensory deficits. Coordination appears grossly intact. Speech is normal. Skin: Skin is warm and dry and no rashes or lesions are noted. Psychiatric: Cooperative, appropriate mood & affect, normal judgment. Limitations: no limitations Course Vital Signs 08/02/17 12:08 Temperature 97.3 F L Pulse Rate 54 L Respiratory 16 Rate Blood Pressure 140/81 O2 Sat by Pulse 100 Oximetry Medical Decision Making - Medical Decision Making Patient's CT of the lumbar spine was reviewed and shows no fracture. Multilevel spondylitic changes with degenerative grade 1 anterolisthesis of L4- L5. Patient has not filled her prescriptions of ibuprofen and Robaxin were given to her earlier today. Patient given dose of Toradol and Norflex here in emergency room. Will be discharged home advised to get prescriptions filled that she was given earlier today. Disposition Clinical Impression: Acute low back pain Disposition: HOME SELF-CARE Condition: Good Instructions: Acute Low Back Pain (ED) Additional Instructions: Please use medication as previously prescribed. Please call family doctor or orthopedics for further evaluation and possible MRI over the next 2 days. Please return to emergency room if the symptoms increase or worsen or for any other concerns. Referrals: Alejandra Rivera MD [Primary Care Provider] - 1-2 days Britney London DO [Doctor of Osteopathic Medicine] - 1-2 days Time of Disposition: 13:58
[2017-08-02] MEDS ORDERED: KETOROLAC 60 MG/2 ML VIAL IM STA (13:59)
[2017-08-02] MEDS ORDERED: ORPHENADRINE 30 MG/ML 2 ML VIAL IM STA (13:59)
[2017-08-02 14:25] VITALS: BP 135/65; PULSE 55; RESP 20; TEMP 97.6
== END 2017-08-02 14:25 | disposition home or self-care (01) ==
LOC: EC 11:37
DX: M54.5 Low back pain (principal); M47.816 Spondylosis without myelopathy or radiculopathy, lumbar region; M43.16 Spondylolisthesis, lumbar region; M79.651 Pain in right thigh; I10 Essential (primary) hypertension; F17.200 Nicotine dependence, unspecified, uncomplicated; Z79.899 Other long term (current) drug therapy; Z88.0 Allergy status to penicillin
CPT/HCPCS: 99284 ×2; 96372 ×3; 99283; 76700; 76856; 76830; 72131; J2360; J1885

== ENCOUNTER → 2017-08-02 | Outpatient (CLI) | payer MEDICARE, OTHER ==
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
--- NOTE | 2017-08-02 19:45 | US ---
EXAMINATION TYPE: US pelvis complete transvag DATE OF EXAM: 08/02/2017 COMPARISON: NONE CLINICAL HISTORY: R10.9 Abdominal/Pelvic Pain. Pain rlq, appendectomy as child , large body habitus t v supplemental pt size TECHNIQUE: Transvaginal (TV) and Transabdominal (TA) Date of LMP: 6 years ago EXAM MEASUREMENTS: Uterus: 7.1 x 3.5 x 4.1 cm Endometrial Stripe: not seen cm Right Ovary: 1.8 x 1.0 x 1.6 cm Left Ovary: not seen cm 1. Uterus: fibroids anterior 1.8 x 1.6 x 2.2 cm, posterior fibroid .2 x 1.5 x 1.9 cm 2. Endometrium: not seen 3. Right Ovary: Obscured by overlying bowel gas,portion seen wnl 4. Left Ovary: Obscured by overlying bowel gas Spectral, color and waveform doppler imaging shows good arterial and venous flow within the ovaries ; there is no evidence for ovarian torsion. 5. Bilateral Adnexa: No obvious masses or cysts 6. Posterior cul-de-sac: No free fluid identified. IMPRESSION: 1. Uterine fibroids. 2. Endometrial stripe poorly delineated 3. Left ovary not identified during this exam
== END | disposition home or self-care (01) ==
LOC: RADUSWWP 10:48
PROVIDERS: ATTEND Internal Medicine
DX: D25.9 Leiomyoma of uterus, unspecified (principal); R10.9 Unspecified abdominal pain
CPT/HCPCS: 76700; 76830; 76856

== ENCOUNTER → 2017-08-29 | Outpatient (CLI) | payer MEDICARE, OTHER ==
--- NOTE | 2017-08-29 14:36 | XR ---
EXAMINATION TYPE: XR hand complete LT DATE OF EXAM: 08/29/2017 CLINICAL HISTORY: Crushing injury on left hand with pain. TECHNIQUE: Frontal, lateral and oblique images of the left hand are obtained. COMPARISON: Left hand x-ray dated 07-26-2017. FINDINGS: There is no acute fracture/dislocation evident in the left hand. The joint spaces in the l eft hand appear within normal limits. The overlying soft tissue appears unremarkable. IMPRESSION: There is no acute fracture or dislocation in the left hand.
== END | disposition home or self-care (01) ==
LOC: RADXRMAIN 14:07
PROVIDERS: ATTEND Emergency Medicine
DX: S67.197D Crushing injury of left little finger, subsequent encounter (principal)

== ENCOUNTER → 2017-10-02 | Outpatient (CLI) | payer MEDICARE, OTHER ==
--- NOTE | 2017-10-03 08:33 | MM ---
Reason for exam: screening (asymptomatic). Last mammogram was performed 5 years and 3 months ago. History: Patient is postmenopausal and is nulliparous. Physical Findings: A clinical breast exam by your physician is recommended on an annual basis and results should be correlated with mammographic findings. MG 3D Screening Mammo W/Cad Bilateral CC and MLO view(s) were taken. Prior study comparison: June 19, 2012, bilateral digital screening mammo w/CAD. There are scattered fibroglandular densities. Stable benign calcifications. No significant changes when compared with prior studies. ASSESSMENT: Benign, BI-RAD 2 RECOMMENDATION: Routine screening mammogram of both breasts in 1 year.
== END | disposition home or self-care (01) ==
LOC: RADMAMWWP 07:28
PROVIDERS: ATTEND Family Medicine
DX: Z12.31 Encounter for screening mammogram for malignant neoplasm of breast (principal)
CPT/HCPCS: 77063; 77067

== ENCOUNTER 2017-11-10 06:40 | Emergency (ER) | payer MEDICARE, OTHER ==
[2017-11-10 06:49] VITALS: TEMP 97
[2017-11-10] MEDS ORDERED: SODIUM CHLORIDE 0.9% 1,000 ML IV STA (07:22)
[2017-11-10] MEDS ORDERED: KETOROLAC 30 MG/ML 1 ML VIAL IVP STA (07:22)
--- NOTE | 2017-11-10 07:24 | ED ---
General Adult HPI - General Chief complaint: Abdominal Pain Stated complaint: Left Flank Pain Time Seen by Provider: 11/10/17 07:00 Source: patient, RN notes reviewed Mode of arrival: ambulatory Limitations: no limitations - History of Present Illness Initial comments: This is a 52-year-old female presents emergency Department complaining of left- sided flank pain. Patient states the pain is intermittent. Patient states that if she twists the pain is much worse. Patient definitely states that the pain seems to be related to movement. Patient points to her lower back when she is describing her pain. Patient states she hits it presses on it doesn't seem to increase the pain or lessen the pain. Patient denies any blood in urine patient denies any dysuria hematuria urinary freaky. Patient denies any injury. Patient denies any similar pain. Patient denies any anterior abdominal pain. Patient denies any nausea vomiting or diarrhea. Patient denies any recent fever or chills. Patient denies any chest pain difficulty breathing shortest breath. - Related Data Home Medications Medication Instructions Recorded Confirmed Hydrochlorothiazide [Hydrodiuril] 25 mg PO DAILY 11/26/16 08/02/17 Multivitamins, Thera [Multivitamin 1 tab PO DAILY 11/26/16 08/02/17 (formulary)] Pregabalin [Lyrica] 100 11/10/17 Previous Rx's Medication Instructions Recorded Ibuprofen [Motrin] 600 mg PO Q8HR PRN #20 tab 08/02/17 Methocarbamol [Robaxin-750] 750 mg PO TID PRN #30 tablet 08/02/17 Cyclobenzaprine [Flexeril] 10 mg PO TID #20 tab 11/10/17 Ibuprofen [Motrin] 600 mg PO Q6HR PRN #20 tab 11/10/17 Allergies Allergy/AdvReac Type Severity Reaction Status Date / Time Penicillins Allergy Rash/Hives Verified 11/10/17 06:49 Review of Systems ROS Statement: Those systems with pertinent positive or pertinent negative responses have been documented in the HPI. ROS Other: All systems not noted in ROS Statement are negative. Past Medical History Past Medical History: COPD, GERD/Reflux, Hypertension, Musculoskeletal Disorder , Osteoarthritis (OA) Additional Past Medical History / Comment(s): 'ENLARGED KIDNEY" PER PATIENT , OCCASIONAL BLOOD IN STOOL History of Any Multi-Drug Resistant Organisms: None Reported Past Surgical History: Appendectomy, Tubal Ligation Additional Past Surgical History / Comment(s): COLONOSCOPY Past Anesthesia/Blood Transfusion Reactions: No Reported Reaction Past Psychological History: Depression Smoking Status: Current every day smoker Past Alcohol Use History: None Reported Past Drug Use History: None Reported - Past Family History Mother Family Medical History: Cancer General Exam - General Exam Comments Initial Comments: GENERAL: Patient is well-developed and well-nourished. Patient is nontoxic and well- hydrated and is in mild distress. ENT: Neck is soft and supple. No significant lymphadenopathy is noted. Oropharynx is clear. Moist mucous membranes. Neck has full range of motion without eliciting any pain. EYES: The sclera were anicteric and conjunctiva were pink and moist. Extraocular movements were intact and pupils were equal round and reactive to light. Eyelids were unremarkable. PULMONARY: Unlabored respirations. Good breath sounds bilaterally. No audible rales rhonchi or wheezing was noted. CARDIOVASCULAR: There is a regular rate and rhythm without any murmurs gallops or rubs. ABDOMEN: Soft and nontender with normal bowel sounds. No palpable organomegaly was noted. There is no palpable pulsatile mass. SKIN: Skin is clear with no lesions or rashes and otherwise unremarkable. NEUROLOGIC: Patient is alert and oriented x3. Cranial nerves II through XII are grossly intact. Motor and sensory are also intact. Normal speech, volume and content. Symmetrical smile. MUSCULOSKELETAL: Normal extremities with adequate strength and full range of motion. No lower extremity swelling or edema. No calf tenderness. LYMPHATICS: No significant lymphadenopathy is noted PSYCHIATRIC: Normal psychiatric evaluation. Normal interpersonal interactions appears functionally intact in deals appropriately with others. No signs of depression. No signs of anxiety. Limitations: no limitations Course Vital Signs 11/10/17 11/10/17 11/10/17 06:45 07:49 08:43 Temperature 97.0 F L Pulse Rate 55 L 50 L 56 L Respiratory 18 18 16 Rate Blood Pressure 182/86 155/69 170/74 O2 Sat by Pulse 99 98 100 Oximetry Medical Decision Making - Lab Data Result diagrams: 11/10/17 07:20 11/10/17 07:20 Lab Results 11/10/17 11/10/17 11/10/17 Range/Units 07:20 07:20 07:20 WBC 7.1 (3.8-10.6) k/uL RBC 4.38 (3.80-5.40) m/uL Hgb 13.1 (11.4-16.0) gm/dL Hct 34.5 (34.0-46.0) % MCV 78.7 L (80.0-100.0) fL MCH 29.9 (25.0-35.0) pg MCHC 38.0 H (31.0-37.0) g/dL RDW 12.4 (11.5-15.5) % Plt Count 269 (150-450) k/uL Neutrophils % 37 % Lymphocytes % 48 % Monocytes % 7 % Eosinophils % 4 % Basophils % 1 % Neutrophils # 2.6 (1.3-7.7) k/uL Lymphocytes # 3.4 (1.0-4.8) k/uL Monocytes # 0.5 (0-1.0) k/uL Eosinophils # 0.3 (0-0.7) k/uL Basophils # 0.1 (0-0.2) k/uL Differential Comment Manual Slide Review Performed Hyperchromasia Marked Target Cells Present Sodium 143 (137-145) mmol/L Potassium 4.1 (3.5-5.1) mmol/L Chloride 106 (98-107) mmol/L Carbon Dioxide 24 (22-30) mmol/L Anion Gap 13 mmol/L BUN 14 (7-17) mg/dL Creatinine 0.57 (0.52-1.04) mg/dL Est GFR (CKD-EPI)AfAm >90 (>60 ml/min/1.73 sqM) Est GFR (CKD-EPI)NonAf >90 (>60 ml/min/1.73 sqM) Glucose 120 H (74-99) mg/dL Calcium 9.7 (8.4-10.2) mg/dL Total Bilirubin 0.7 (0.2-1.3) mg/dL AST 22 (14-36) U/L ALT 28 (9-52) U/L Alkaline Phosphatase 83 (38-126) U/L Total Protein 7.6 (6.3-8.2) g/dL Albumin 4.1 (3.5-5.0) g/dL Amylase 59 (30-110) U/L Lipase 122 (23-300) U/L Urine Color Yellow Urine Appearance Clear (Clear) Urine pH 5.5 (5.0-8.0) Ur Specific [place] 1.020 (1.001-1.035) Urine Protein Negative (Negative) Urine Glucose (UA) Negative (Negative) Urine Ketones Negative (Negative) Urine Blood Negative (Negative) Urine Nitrite Negative (Negative) Urine Bilirubin Negative (Negative) Urine Urobilinogen <2.0 (<2.0) mg/dL Ur Leukocyte Esterase Trace H (Negative) Urine RBC <1 (0-5) /hpf Urine WBC 1 (0-5) /hpf Ur Squamous Epith Cells 1 (0-4) /hpf Urine Bacteria Moderate H (None) /hpf Urine Mucus Rare H (None) /hpf Disposition Clinical Impression: Lumbar strain Disposition: HOME SELF-CARE Condition: Good Instructions: Low Back Strain (ED) Prescriptions: Cyclobenzaprine [Flexeril] 10 mg PO TID #20 tab Ibuprofen [Motrin] 600 mg PO Q6HR PRN #20 tab PRN Reason: For pain Is patient prescribed a controlled substance at d/c from ED?: No Referrals: Bc Damian MD [Primary Care Provider] - 1-2 days Time of Disposition: 09:38
--- NOTE | 2017-11-10 08:07 | XR ---
EXAMINATION TYPE: XR KUB , 2 VIEWS DATE OF EXAM ORDERED: 11/10/2017 HISTORY: abdominal pain. COMPARISON: None. FINDINGS: The lung bases are clear. The abdominal gas pattern is within normal limits. There is no evidence of obstruction or free air. N o unusual calcifications are seen. IMPRESSION: NORMAL ABDOMEN.
[2017-11-10 08:10] LABS: Appearance,Urine Clear (Clear); Bacteria,Urine Moderate /hpf; Bilirubin,Urine Negative (Negative); Blood,Urine Negative (Negative); Color,Urine Yellow; Glucose,Urine (UA) Negative (Negative); Ketones,Urine Negative (Negative); Leukocyte Esterase,Urine Trace (Negative); Mucus,Urine Rare /hpf; Nitrite,Urine Negative (Negative); PH, Urine 5.5 (5.0-8.0); Protein,Urine Negative (Negative); RBC,Urine <1 /hpf (0-5); Squamous Epithelial Cell,Urine 1 /hpf (0-4); Urobilinogen,Urine <2.0 mg/dL (<2.0); WBC,Urine 1 /hpf (0-5)
[2017-11-10 08:13] LABS: ALT 28 U/L (9-52); AST 22 U/L (14-36); Albumin 4.1 g/dL (3.5-5.0); Alkaline Phosphatase 83 U/L (38-126); Amylase 59 U/L (30-110); Anion Gap 13 mmol/L; Blood Urea Nitrogen 14 mg/dL (7-17); Calcium 9.7 mg/dL (8.4-10.2); Carbon Dioxide 24 mmol/L (22-30); Chloride 106 mmol/L (98-107); Glucose 120 mg/dL (74-99); Lipase 122 U/L (23-300); Potassium 4.1 mmol/L (3.5-5.1); Sodium 143 mmol/L (137-145); Total Bilirubin 0.7 mg/dL (0.2-1.3); Total Protein 7.6 g/dL (6.3-8.2)
[2017-11-10 08:23] LABS: Hyperchromasia Marked
[2017-11-10 08:25] LABS: Basophils # (A) 0.1 k/uL (0-0.2); Basophils % (A) 1 %; Eosinophils # (A) 0.3 k/uL (0-0.7); Eosinophils % (A) 4 %; HCT 34.5 % (34.0-46.0); HGB 13.1 gm/dL (11.4-16.0); Lymphocytes # (A) 3.4 k/uL (1.0-4.8); Lymphocytes % (A) 48 %; MCH 29.9 pg (25.0-35.0); MCV 78.7 fL (80.0-100.0); Mean Platelet Volume 7.1; Monocytes # (A) 0.5 k/uL (0-1.0); Monocytes % (A) 7 %; Neutrophils # (A) 2.6 k/uL (1.3-7.7); Neutrophils % (A) 37 %; Platelet Count 269 k/uL (150-450); RBC 4.38 m/uL (3.80-5.40); RDW 12.4 % (11.5-15.5); WBC 7.1 k/uL (3.8-10.6)
[2017-11-10 08:52] LABS: Target Cells Present
[2017-11-10] MEDS ORDERED: HYDROCHLOROTHIAZIDE 25 MG TAB PO STA (09:14)
[2017-11-10 10:01] VITALS: BP 154/65; PULSE 47; RESP 18
== END 2017-11-10 10:01 | disposition home or self-care (01) ==
LOC: EC 06:40
DX: S39.012A Strain of muscle, fascia and tendon of lower back, initial encounter (principal); I10 Essential (primary) hypertension; F17.200 Nicotine dependence, unspecified, uncomplicated; Z90.49 Acquired absence of other specified parts of digestive tract; Z88.0 Allergy status to penicillin; Z79.899 Other long term (current) drug therapy; X58.XXXA Exposure to other specified factors, initial encounter
CPT/HCPCS: 99284; 96374; 96361 ×2; 36415; 80053; 82150; 83690; 85025; 81001; 87086; 74018; J1885

== ENCOUNTER → 2018-06-07 | Outpatient (CLI) | payer MEDICARE, OTHER ==
--- NOTE | 2018-06-07 10:07 | FL ---
EXAMINATION TYPE: FL UGI air DATE OF EXAM: 06/07/2018 9:43 AM COMPARISON: NONE CLINICAL HISTORY: R13.10 dysphagia Preliminary view of the abdomen reveals a normal bowel gas pattern. Mild degenerative changes are not ed of the thoracolumbar spine. Upper GI examination was performed according to the air contrast techn ique. Barium and effervescent crystal was swallowed without difficulty or delay. Esophageal perista lsis and motility are within normal limits. Mild gastroesophageal reflux noted without esophagitis. T here is a small sliding-type hiatal hernia detected. The stomach has a normal appearance in terms of its size, shape and location. No gastric filling defects or ulcer craters are seen. The duodenal bu lb and sweep are also free of intraluminal lesion or ulcer crater. IMPRESSION: Mild gastroesophageal reflux noted without esophagitis. There is a small sliding-type hiatal hernia d etected.
== END ==
LOC: RADFLWHC 08:38
PROVIDERS: ATTEND Family Medicine
DX: K21.9 Gastro-esophageal reflux disease without esophagitis (principal); K44.9 Diaphragmatic hernia without obstruction or gangrene; Z88.0 Allergy status to penicillin
CPT/HCPCS: 74246

== ENCOUNTER → 2018-06-11 | Outpatient (CLI) | payer MEDICARE, OTHER ==
--- NOTE | 2018-06-11 23:31 | CT ---
EXAMINATION TYPE: CT abdomen pelvis w con DATE OF EXAM: 06/11/2018 COMPARISON: 08/03/2014 HISTORY: 52-year-old female with left upper quadrant pain TECHNIQUE: Contiguous axial scanning of the abdomen and pelvis following administration of 100 ml Omn ipaque 300 IV contrast. Delayed images through the kidneys and coronal/sagittal reconstructions perf ormed. CT DLP: 2020.1 mGycm Automated exposure control for dose reduction was used. FINDINGS: Heart normal size without pericardial effusion. Lung bases clear without pleural effusion. Tiny hiatal hernia. Liver upper limits of normal in size at 17.1 cm. No focal lesion seen or biliary ductal dilatation. P ortal venous system is patent. Gallbladder, adrenal glands, kidneys, spleen, and pancreas appear within normal limits. No dilated small bowel, free fluid, or free air. No mesenteric or retroperitoneal lymphadenopathy. Tiny normal appendix is visualized, coronal image 52. Scattered mild stool burden without pericolonic inflammatory change. Prominent distention of the urinary bladder by 11 cm. Uterus is anteverted. Ovaries not well seen. No abnormal fluid collection in the pelvis or pelvic lymphadenopathy. Bones: Degenerative changes are at least moderate at the hips. Anterior endplate spondylosis lower th oracic spine. Facet arthropathy lower lumbar spine. IMPRESSION: 1. LIVER AT THE UPPER LIMITS OF NORMAL IN SIZE AT 17.1 CM. 2. NO ACUTE INFLAMMATORY PROCESS IDENTIFIED IN THE ABDOMEN OR PELVIS TO EXPLAIN THE PATIENT'S SYMPTOM S.
== END | disposition home or self-care (01) ==
LOC: RADCTMAIN 16:12
PROVIDERS: ATTEND Family Medicine
DX: R10.12 Left upper quadrant pain (principal); Z88.0 Allergy status to penicillin
CPT/HCPCS: 74177; Q9967

== ENCOUNTER 2018-07-08 18:54 | Emergency (ER) | payer MEDICARE, OTHER ==
[2018-07-08] MEDS ORDERED: FAMOTIDINE 20 MG/2 ML VIAL IV STA (19:07)
[2018-07-08] MEDS ORDERED: methylPREDNISolone SOD SUCCI 125 MG/2 ML VIAL IV STA (19:07)
[2018-07-08] MEDS ORDERED: diphenhydrAMINE 50 MG/ML 1 ML VIAL IVP STA (19:07)
[2018-07-08] MEDS ORDERED: SODIUM CHLORIDE 0.9% 500 ML 500 ML IV ONE (19:08)
--- NOTE | 2018-07-08 19:10 | ED ---
Allergic Reaction HPI - General Chief complaint: Allergic Reaction Stated complaint: poss allergic rxn Time Seen by Provider: 07/08/18 19:05 Source: patient, RN notes reviewed Mode of arrival: ambulatory Limitations: no limitations - History of Present Illness Initial Comments: 52-year-old female presented emergency department with chief complaint ALLERGIC reaction. Patient states it happened 30 minutes prior arrival. Patient states took her medications and not sure if this is related. She states she has taken his medication several times in the past. Patient states that she is very itchy , feels short of breath. Patient denies any closing of her throat sensation. Patient states she did not take any Benadryl or any other medications for ALLERGIC reaction prior arrival. She's never had any like this in the past. She does have known ALLERGY to penicillin. - Related Data Home Medications Medication Instructions Recorded Confirmed Albuterol Inhaler [Ventolin Hfa 2 puff INHALATION RT-TID 05/22/18 05/22/18 Inhaler] Lansoprazole [Prevacid] 15 mg PO DAILY 05/22/18 05/22/18 Losartan/Hydrochlorothiazide 1 tab PO DAILY 05/22/18 05/22/18 [Losartan-Hctz 100-25 mg Tab] Previous Rx's Medication Instructions Recorded Ibuprofen [Motrin] 600 mg PO Q6HR PRN #20 tab 11/10/17 diphenhydrAMINE [Benadryl] 50 mg PO QID PRN #20 capsule 07/08/18 predniSONE 50 mg PO DAILY #5 tab 07/08/18 Allergies Allergy/AdvReac Type Severity Reaction Status Date / Time Penicillins Allergy Rash/Hives Verified 07/08/18 19:02 Review of Systems ROS Statement: Those systems with pertinent positive or pertinent negative responses have been documented in the HPI. ROS Other: All systems not noted in ROS Statement are negative. Past Medical History Past Medical History: COPD, GERD/Reflux, Hypertension, Musculoskeletal Disorder , Osteoarthritis (OA) Additional Past Medical History / Comment(s): 'ENLARGED KIDNEY" PER PATIENT , OCCASIONAL BLOOD IN STOOL History of Any Multi-Drug Resistant Organisms: None Reported Past Surgical History: Appendectomy, Tubal Ligation Additional Past Surgical History / Comment(s): COLONOSCOPY Past Anesthesia/Blood Transfusion Reactions: No Reported Reaction Past Psychological History: Depression Smoking Status: Current every day smoker Past Alcohol Use History: None Reported Past Drug Use History: None Reported - Past Family History Mother Family Medical History: Cancer General Exam Limitations: no limitations General appearance: alert, in no apparent distress Head exam: Present: atraumatic, normocephalic, normal inspection Eye exam: Present: normal appearance, PERRL, EOMI. Absent: scleral icterus, conjunctival injection, periorbital swelling ENT exam: Present: normal exam, normal oropharynx, mucous membranes moist Neck exam: Present: normal inspection. Absent: tenderness, meningismus, lymphadenopathy Respiratory exam: Present: normal lung sounds bilaterally. Absent: respiratory distress, wheezes, rales, rhonchi, stridor Cardiovascular Exam: Present: regular rate, normal rhythm, normal heart sounds. Absent: systolic murmur, diastolic murmur, rubs, gallop, clicks Neurological exam: Present: alert, oriented X3, CN II-XII intact Skin exam: Present: warm, dry, intact, normal color. Absent: rash Course Vital Signs 07/08/18 07/08/18 19:00 19:10 Temperature 98.0 F Pulse Rate 86 Respiratory 24 20 Rate Blood Pressure 208/86 O2 Sat by Pulse 98 Oximetry Medical Decision Making - Medical Decision Making 52-year-old female sent for ALLERGIC reaction. Patient is improved at after iv fluids, Bentyl, Pepcid and steroids. Patient will be discharged at this time with penicillin and Benadryl. Return parameters were discussed. Disposition Clinical Impression: Allergic reaction Disposition: HOME SELF-CARE Condition: Stable Instructions: General Allergic Reaction (ED) Additional Instructions: Please return to the Emergency Department if symptoms worsen or any other concerns. Prescriptions: diphenhydrAMINE [Benadryl] 50 mg PO QID PRN #20 capsule PRN Reason: Allergic Reaction predniSONE 50 mg PO DAILY #5 tab Is patient prescribed a controlled substance at d/c from ED?: No Referrals: Bc Damian MD [Primary Care Provider] - 1-2 days Time of Disposition: 21:13
[2018-07-08 21:30] VITALS: BP 178/70; PULSE 81; RESP 16; TEMP 98.1
== END 2018-07-08 21:29 | disposition home or self-care (01) ==
LOC: EC 18:54
DX: T78.40XA Allergy, unspecified, initial encounter (principal); J44.9 Chronic obstructive pulmonary disease, unspecified; K21.9 Gastro-esophageal reflux disease without esophagitis; I10 Essential (primary) hypertension; F17.200 Nicotine dependence, unspecified, uncomplicated; Z79.899 Other long term (current) drug therapy; Z88.0 Allergy status to penicillin
CPT/HCPCS: 99284; 96374; 96375 ×2; 96361; J1200; J2930

== ENCOUNTER 2018-10-03 13:17 | Emergency (ER) | payer MEDICARE, OTHER ==
[2018-10-03 13:32] VITALS: TEMP 97.2
[2018-10-03] MEDS ORDERED: ASPIRIN 81 MG PO STA (13:35)
[2018-10-03] MEDS ORDERED: MAG HYDROX/AL HYDROX/SIMETH 30 ML, HYOSCYAMINE ELIXIR 10 ML, CIMETIDINE HCL 300 MG, LID... PO STA ×4 (14:11)
[2018-10-03] MEDS ORDERED: FAMOTIDINE 20 MG/2 ML VIAL IV STA (14:11)
[2018-10-03 14:21] LABS: Appearance,Urine Clear (Clear); Bilirubin,Urine Negative (Negative); Blood,Urine Negative (Negative); Color,Urine Yellow; Glucose,Urine (UA) Negative (Negative); Ketones,Urine Negative (Negative); Leukocyte Esterase,Urine Negative (Negative); Nitrite,Urine Negative (Negative); PH, Urine 5.5 (5.0-8.0); Protein,Urine Trace (Negative); Specific Gravity,Urine 1.027 (1.001-1.035); Urobilinogen,Urine <2.0 mg/dL (<2.0)
[2018-10-03 14:21] LABS: ALT 32 U/L (9-52); AST 27 U/L (14-36); Albumin 4.3 g/dL (3.5-5.0); Alkaline Phosphatase 77 U/L (38-126); Anion Gap 9 mmol/L; Blood Urea Nitrogen 15 mg/dL (7-17); Carbon Dioxide 25 mmol/L (22-30); Chloride 109 mmol/L (98-107); Glucose 126 mg/dL (74-99); Lipase 117 U/L (23-300); Potassium 4.2 mmol/L (3.5-5.1); Sodium 143 mmol/L (137-145); Total Bilirubin 0.9 mg/dL (0.2-1.3); Total Protein 8.3 g/dL (6.3-8.2)
[2018-10-03 14:35] LABS: Basophils % (A) 1 %; Eosinophils # (A) 0.3 k/uL (0-0.7); Eosinophils % (A) 4 %; HCT 38.5 % (34.0-46.0); HGB 12.8 gm/dL (11.4-16.0); Lymphocytes # (A) 2.9 k/uL (1.0-4.8); Lymphocytes % (A) 44 %; MCH 27.5 pg (25.0-35.0); MCHC 33.2 g/dL (31.0-37.0); MCV 82.8 fL (80.0-100.0); Mean Platelet Volume 7.6; Monocytes # (A) 0.4 k/uL (0-1.0); Monocytes % (A) 5 %; Neutrophils # (A) 2.9 k/uL (1.3-7.7); Neutrophils % (A) 44 %; Platelet Count 251 k/uL (150-450); RBC 4.65 m/uL (3.80-5.40); RDW 13.6 % (11.5-15.5); WBC 6.7 k/uL (3.8-10.6)
--- NOTE | 2018-10-03 14:36 | ED ---
Chest Pain HPI - General Chief Complaint: Chest Pain Stated Complaint: Chest pain Time Seen by Provider: 10/03/18 13:35 Source: patient, RN notes reviewed Mode of arrival: ambulatory Limitations: no limitations - History of Present Illness Initial Comments: This a 53-year-old female presents emergency Department chief complaint of epigastric pain. Patient states she is a burning sensation epigastric that radiates up into her chest. Patient states that she has terrible reflux. Patient states that she has not taken anything for this at this time. Patient states she has had a scope in the past. Patient denies fevers or chills. Patient states is worse when she eats. Patient does have a history of hypertension and is a mild smoker. Patient denies any current chest pain or shortness of breath no headache or dizziness. - Related Data Home Medications Medication Instructions Recorded Confirmed Albuterol Inhaler [Ventolin Hfa 2 puff INHALATION RT-TID 05/22/18 10/03/18 Inhaler] Lansoprazole [Prevacid] 15 mg PO DAILY 05/22/18 10/03/18 Losartan/Hydrochlorothiazide 1 tab PO DAILY 05/22/18 10/03/18 [Losartan-Hctz 100-25 mg Tab] Previous Rx's Medication Instructions Recorded Ibuprofen [Motrin] 600 mg PO Q6HR PRN #20 tab 11/10/17 diphenhydrAMINE [Benadryl] 50 mg PO QID PRN #20 capsule 07/08/18 Pantoprazole [Protonix] 40 mg PO DAILY #30 tablet. 10/03/18 Sucralfate [Carafate] 1 gm PO BID #30 tablet 10/03/18 Allergies Allergy/AdvReac Type Severity Reaction Status Date / Time Penicillins Allergy Rash/Hives Verified 10/03/18 13:52 Review of Systems ROS Statement: Those systems with pertinent positive or pertinent negative responses have been documented in the HPI. ROS Other: All systems not noted in ROS Statement are negative. EKG Findings - EKG Comments: EKG Findings:: EKG performed at 13:41 sinus bradycardia with rate of 53 KS 166 QRS 84 QT/QTC 410/392 Past Medical History Past Medical History: COPD, GERD/Reflux, Hypertension, Musculoskeletal Disorder, Osteoarthritis (OA) Additional Past Medical History / Comment(s): 'ENLARGED KIDNEY" PER PATIENT , OCCASIONAL BLOOD IN STOOL History of Any Multi-Drug Resistant Organisms: None Reported Past Surgical History: Appendectomy, Tubal Ligation Additional Past Surgical History / Comment(s): COLONOSCOPY Past Anesthesia/Blood Transfusion Reactions: No Reported Reaction Past Psychological History: Depression Smoking Status: Current every day smoker Past Alcohol Use History: None Reported Past Drug Use History: None Reported - Past Family History Mother Family Medical History: Cancer General Exam Limitations: no limitations General appearance: alert, in no apparent distress Head exam: Present: atraumatic, normocephalic, normal inspection Eye exam: Present: normal appearance, PERRL, EOMI. Absent: scleral icterus, conjunctival injection, periorbital swelling Respiratory exam: Present: normal lung sounds bilaterally. Absent: respiratory distress, wheezes, rales, rhonchi, stridor Cardiovascular Exam: Present: regular rate, normal rhythm, normal heart sounds. Absent: systolic murmur, diastolic murmur, rubs, gallop, clicks GI/Abdominal exam: Present: soft, tenderness (Epigastric), normal bowel sounds. Absent: distended, guarding, rebound, rigid Back exam: Absent: CVA tenderness (R), CVA tenderness (L) Neurological exam: Present: alert, oriented X3, CN II-XII intact Skin exam: Present: warm, dry, intact, normal color. Absent: rash Course Vital Signs 10/03/18 10/03/18 13:30 15:06 Temperature 97.2 F L Pulse Rate 59 L 52 L Respiratory 20 18 Rate Blood Pressure 146/76 112/76 O2 Sat by Pulse 99 100 Oximetry Chest Pain MDM - [facility] 53-year-old female presented from for epigastric pain, reflux issues. Patient's laboratory is unremarkable EKG unremarkable. Patient included a GI cocktail. Patient will be discharged with antacids and return parameters were discussed. Disposition Clinical Impression: Gastroesophageal reflux disease Disposition: HOME SELF-CARE Condition: Stable Instructions (If sedation given, give patient instructions): Diet for Stomach Ulcers and Gastritis (ED), Gastroesophageal Reflux Disease (ED) Additional Instructions: Please return to the Emergency Department if symptoms worsen or any other concerns. Prescriptions: Sucralfate [Carafate] 1 gm PO BID #30 tablet Pantoprazole [Protonix] 40 mg PO DAILY #30 tablet.dr Is patient prescribed a controlled substance at d/c from ED?: No Referrals: Bc Damian MD [Primary Care Provider] - 1-2 days Time of Disposition: 15:13
[2018-10-03 14:44] LABS: Prothrombin Time 10.3 sec (9.0-12.0)
--- NOTE | 2018-10-03 14:47 | XR ---
EXAMINATION TYPE: XR chest 2V DATE OF EXAM: 10/03/2018 COMPARISON: 05/22/2018 HISTORY: 53-year-old female with chest pain TECHNIQUE: PA and lateral views FINDINGS: The cardiomediastinal silhouette, aorta, and pulmonary vasculature are within normal limits. Mild alanna tral peribronchial cuffing is demonstrated. No consolidation or pleural effusion. Changes of DISH wit hin the mid thoracic spine. IMPRESSION: Mild central peribronchial cuffing could reflect bronchitis or asthma. No other acute process seen.
[2018-10-03 14:52] LABS: Partial Thromboplastin Time 20.8 sec (22.0-30.0)
[2018-10-03 15:36] VITALS: BP 152/69; PULSE 53; RESP 16
== END 2018-10-03 15:38 | disposition home or self-care (01) ==
LOC: EC 13:17
DX: K21.9 Gastro-esophageal reflux disease without esophagitis (principal); J44.9 Chronic obstructive pulmonary disease, unspecified; I10 Essential (primary) hypertension; F17.200 Nicotine dependence, unspecified, uncomplicated; Z79.899 Other long term (current) drug therapy; Z88.0 Allergy status to penicillin
CPT/HCPCS: 36415; 71046; 80053; 81003; 83690; 83735; 84484; 85025; 85610; 85730; 93005; 96374; 99285

== ENCOUNTER → 2018-10-18 | Outpatient (CLI) | payer MEDICARE, OTHER ==
--- NOTE | 2018-10-18 12:14 | NM ---
EXAMINATION TYPE: NM stress lexiscan cardiolite DATE OF EXAM: 10/18/2018 COMPARISON: NONE HISTORY: Precordial chest pain and abnormal EKG TECHNIQUE: After the intravenous administration of 9.85 mCi Tc 99m Sestamibi - Cardiolite resting SP ECT images acquired 45 minutes post injection. The patient received 0.4mg Lexiscan, 25.8 mCi Tc 99m Sestamibi - Stress images obtained [address] injection FINDINGS: Review of stress and rest SPECT images demonstrates small area of decreased perfusion on stress image s involving the anteroseptal wall. Correlate for stress-induced ischemia. Fixed defect fact that the cardiac apex. Gated analysis shows normal wall motion with an estimated left ventricular ejection fra ction of 64 %. IMPRESSION: I cannot exclude a small area of stress-induced ischemia anteroseptal wall.
--- NOTE | 2018-10-18 18:59 | P.STRESS ---
- Stress Test Note Stress Test Results/Findings: Exam Performed: NM stress lexiscan cardiolite Exam Date: 10/18/18 Reason for Exam: CHEST PAIN / SOB Height: 5 ft 2 in Weight: 5882.64 kg Protocol: LEXISCAN Stage: NA Duration of Exercise: NA Resting Heart Rate: 52 Resting Blood Pressure: 129/69 Maximum Achieved Heart Rate: 73 Maximum Achieved Blood Pressure: 129/69 85% PMHR: NA 100% PMHR: NA METS: NA Technologist Comment: Stress Test Results/Findings: This is a 53-year-old female being evaluated for symptoms of chest pain, shortness of breath. Patient has history of hypertension and tobacco abuse. Stress data: Baseline EKG showed sinus rhythm with NE interval and QRS duration . A standard dose of Lexiscan was infused. EKGs taken during and after the infusion did not reveal any changes of ischemia. Final impression: #1. Negative Lexiscan stress test #2. Report on the nuclear images to begin by the radiologist
--- NOTE | 2018-10-21 17:28 | EST ---
Stress Test Results/Findings: Exam Performed: NM stress lexiscan cardiolite Exam Date: 10/18/18 Reason for Exam: CHEST PAIN / SOB Height: 5 ft 2 in Weight: 5882.64 kg Protocol: LEXISCAN Stage: NA Duration of Exercise: NA Resting Heart Rate: 52 Resting Blood Pressure: 129/69 Maximum Achieved Heart Rate: 73 Maximum Achieved Blood Pressure: 129/69 85% PMHR: NA 100% PMHR: NA METS: NA Technologist Comment: Stress Test Results/Findings: This is a 53-year-old female being evaluated for symptoms of chest pain, shortness of breath. Patient has history of hypertension and tobacco abuse. Stress data: Baseline EKG showed sinus rhythm with FL interval and QRS duration . A standard dose of Lexiscan was infused. EKGs taken during and after the infusion did not reveal any changes of ischemia. Final impression: #1. Negative Lexiscan stress test #2. Report on the nuclear images to begin by the radiologist DEVAN
== END | disposition home or self-care (01) ==
LOC: RADNMMAIN 07:55
PROVIDERS: ATTEND Family Medicine
DX: R07.89 Other chest pain (principal); I10 Essential (primary) hypertension
CPT/HCPCS: 93017; 78452; A9500

== ENCOUNTER 2018-11-13 11:41 | Day surgery (SDC) | payer MEDICARE, OTHER ==
[2018-11-12 11:09] VITALS: BMI 41.3
[~2018-11-13 11:41] MED LIST changes: +ALPRAZolam 0.25 MG TAB PO PRN; +ASPIRIN 325 MG TAB PO ONE; -LACTATED RINGERS 1,000 ML IV SCH; +NITROGLYCERIN SL TABS 0.4 MG TAB SUBLINGUAL PRN; +SODIUM CHLORIDE 0.9% 1,000 ML in EMPTY BAG 1 BAG IV ONE
[2018-11-13 12:55] VITALS: PULSE 57; RESP 20; TEMP 98
[2018-11-13] MEDS ORDERED: IV FLUID CONTINUATION 950 ML IV ONE (13:10)
[2018-11-13] MEDS ORDERED: fentaNYL (PF) 50 MCG/ML 2 ML AMP IV ONE (13:20)
[2018-11-13 13:21] LABS: Anion Gap 8 mmol/L; Blood Urea Nitrogen 16 mg/dL (7-17); Calcium 10.2 mg/dL (8.4-10.2); Carbon Dioxide 26 mmol/L (22-30); Chloride 108 mmol/L (98-107); Glucose 96 mg/dL (74-99); Sodium 142 mmol/L (137-145)
[2018-11-13 13:23] LABS: Potassium 3.9 mmol/L (3.5-5.1)
[2018-11-13] MEDS ORDERED: LIDOCAINE 1% INJ 10MG/ML (20 ML MDV) SQ ONE (13:24)
[2018-11-13] MEDS ORDERED: MIDAZOLAM (PF) 2 MG/2 ML VIAL IV ONE (13:25)
[2018-11-13] MEDS ORDERED: VERAPAMIL SYRINGE (5 MG/10 ML) INTRAARTER ONE (13:26)
[2018-11-13] MEDS ORDERED: HEPARIN SODIUM 1,000 UN/ML (10ML VL) IV ONE (13:32)
[2018-11-13] MEDS ORDERED: IOPAMIDOL-370 125ML BTL INJ ONE (13:37)
[2018-11-13] MEDS ORDERED: RX INFO: IV CONTRAST WAS GIVEN 1 EACH MISC MISCELLANE PRN (13:48)
[2018-11-13] MEDS ORDERED: SODIUM CHLORIDE 0.9% 1,000 ML IV SCH (14:00)
[2018-11-13] MEDS ORDERED: ACETAMINOPHEN TAB 325 MG TAB PO STA ×2 (14:59→15:19)
[2018-11-13 17:50] VITALS: BP 120/60
--- NOTE | 2018-11-13 18:34 | CC ---
CARDIAC CATHETERIZATION REPORT Mrs. Dumont is a 53-year-old female with a known history of hypertension, chronic tobacco use, who has been complaining of chest discomfort, random in timing and duration. She has underwent a myocardial perfusion imaging that revealed anteroseptal wall ischemia. In view of that and the persistent symptoms, recommendation made regarding cardiac catheterization. The procedures, risks and complication were discussed with the patient who is in full understanding and agreement. DESCRIPTION OF PROCEDURE: Patient was brought to the specialist employee labor relations in a fasting state after receiving fentanyl and Benadryl and achieving moderate conscious sedated state. Using Xylocaine anesthesia in the Seldinger technique a 6-Zimbabwean sheath was introduced in the right radial artery. Selective right and left coronary angiography performed using 5-Zimbabwean 3 and half bend right and left Erlin catheter. Multiple views of the coronary artery including hemiaxial views obtained. Following that, a 5-Zimbabwean tight pigtail catheter was introduced in the left ventricle and a 30 degree MAZARIEGOS view of the left ventricle was obtained. Following that, catheter and sheath were removed. Hemostasis was obtained with deployment of a TR band. There was no immediate complication. Patient was returned to her room in stable condition. Of note, the patient received 5000 units of intravenous heparin as well as intra-arterial verapamil. FINDINGS: LEFT MAIN: This is a large-sized vessel bifurcating into left circumflex, left anterior descending artery, left main coronary artery has no evidence of high-grade stenosis. LEFT ANTERIOR DESCENDING ARTERY: This is a large-sized vessel reaching toward the apex with a wraparound apex segment giving rise to a large diagonal branch. The left anterior descending artery as well as branches have no evidence of obstructive disease. LEFT CIRCUMFLEX: This is a dominant vessel bifurcating distally to a PDA and PLV. The left circumflex as well as branches have no evidence of obstructive coronary artery disease. RIGHT CORONARY ARTERY: This is a small nondominant vessel that has no evidence of high- grade stenosis. LEFT VENTRICULOGRAM: Left ventriculogram was performed in 30 degree MAZARIEGOS view and revealed normal left ventricular size and systolic function. Ejection fraction 60%. There was no significant mitral regurgitation. HEMODYNAMICS: There was no gradient across the aortic valve. The left ventricular end-diastolic pressure was 16-20 mmHg. CONCLUSION: 1. Normal coronary arteries. 2. Normal left ventricular size and systolic function. RECOMMENDATIONS: In view of findings and anatomy, I recommend continue medical therapy with aggressive coronary risk modifications that have been initiated. Those findings and recommendation were discussed with the patient and her family and they are in full understanding and agreement. Duration procedure 16 minutes. MMFARZANA / PINKYN: [id number] /
[2018-11-13] MEDS ORDERED: ALBUTEROL INHALER 60 PUFF/8 GM INHALER INHALATION SCH (20:00)
[2018-11-13] MEDS ORDERED: SUCRALFATE 1 GM TAB PO SCH (21:00)
[2018-11-14] MEDS ORDERED: NON-FORMULARY DRUG (Losartan/Hydrochlorothiazide [Losartan-Hctz 100-25 Mg Tab] 1 TAB) PO SCH (09:00)
[2018-11-14] MEDS ORDERED: NON-FORMULARY DRUG (Lansoprazole [Prevacid] 15 MG) PO SCH (09:00)
[2018-11-14] MEDS ORDERED: PANTOPRAZOLE 40 MG TABLET PO SCH (09:00)
[2018-11-14] MEDS ORDERED: ASPIRIN 81 MG PO SCH (09:00)
== END 2018-11-13 18:45 | disposition home or self-care (01) ==
LOC: CATHCVL 11:41
PROVIDERS: ATTEND Internal Medicine Interventional Cardiology
DX: R94.39 Abnormal result of other cardiovascular function study (principal); R07.89 Other chest pain; R06.09 Other forms of dyspnea; R00.2 Palpitations; I10 Essential (primary) hypertension; F17.210 Nicotine dependence, cigarettes, uncomplicated; Z79.899 Other long term (current) drug therapy; Z88.0 Allergy status to penicillin
CPT/HCPCS: 93458; 80048; C1894; C1769; J2001; J3010; J1644; Q9967; J2250

== ENCOUNTER → 2018-11-26 | Outpatient (CLI) | payer MEDICARE, OTHER ==
--- NOTE | 2018-11-26 08:53 | US ---
EXAMINATION TYPE: US pelvic complete DATE OF EXAM: 11/26/2018 COMPARISON: US of 08/02/[address] & [address] 2019 CLINICAL HISTORY: R10.9 Unspecified abd pain,R10.84 Gen Abd Pain. Right pelvic and back pain, 4, para 4, history of tubal ligation TECHNIQUE: Transabdominal sonographic images of the pelvis were acquired. Transvaginal sonographic i mages were medically necessary to better assess the following anatomy: ovaries and endometrium Date of LMP: 2014 EXAM MEASUREMENTS: Uterus: 6.7 x 4.0 x 4.4 cm Endometrial Stripe: 0.3 cm Right Ovary: not seen Left Ovary: not seen 1. Uterus: anteverted, heterogeneous with multiple hypoechoic lesions, largest seen anterior myometr ium measuring 2.4 x 2.5 x 2.8cm. Multiple prior uterine leiomyomas were appreciated on the prior exam of 08/02/2017 however there has been interval growth. 2. Endometrium: wnl 3. Right Ovary: not seen 4. Left Ovary: not seen 5. Bilateral Adnexa: wnl 6. Posterior cul-de-sac: wnl IMPRESSION: Multiple hypoechoic probable uterine leiomyomas with the largest measuring 2.8 cm. The la rgest on the prior exam of 08/02/2017 measured up to 2.2 cm. Ovaries are not seen due to overlying bow el.
--- NOTE | 2018-11-26 08:55 | US ---
EXAMINATION TYPE: US abdomen complete DATE OF EXAM: 11/26/2018 COMPARISON: CT & US 2018 CLINICAL HISTORY: R10.9 Unspecified abd pain,R10.84 Gen Abd Pain. Right pelvic and back pain EXAM MEASUREMENTS: Liver Length: 17.3 cm Gallbladder Wall: 0.2 cm CBD: 0.5 cm Spleen: 10.1 cm Right Kidney: 11.2 x 5.2 x 4.9 cm Left Kidney: 10.6 x 5.1 x 4.9 cm Pancreas: Slightly hypoechoic and heterogenous that may be related to technique although correlation with serum amylase and lipase are recommended to exclude pancreatitis. Liver: measures in upper limits of normal, mildly heterogeneous, most commonly relating to hepatic s teatosis and limiting evaluation for pelvic masses. Gallbladder: wnl Evidence for sonographic Agarwal's sign: no CBD: wnl Spleen: wnl Right Kidney: wnl Left Kidney: visualized portions wnl, limited by overlying midline bowel gas Upper IVC: wnl Abd Aorta: wnl The intrahepatic portion of the IVC and proximal abdominal aorta are within normal limits. There is no evidence of cholelithiasis. Common bile duct is unremarkable. The visualized portions of the modi creas are heterogenous and hypoechoic. The spleen is unremarkable. Kidneys are symmetric and free o f hydronephrosis. No renal lesions are seen. IMPRESSION: 1. Slightly heterogenous echotexture of the pancreas that may be related to technique however correla tion with serum amylase and lipase are recommended to exclude pancreatitis. 2. Mildly heterogenous hepatic parenchyma most commonly relates to hepatic steatosis (mild). Correlat ion with liver function tests is recommended.
== END | disposition home or self-care (01) ==
LOC: RADUSWWP 06:50
PROVIDERS: ATTEND Family Medicine
DX: R93.2 Abnormal findings on diagnostic imaging of liver and biliary tract (principal); R93.5 Abnormal findings on diagnostic imaging of other abdominal regions, including retroperitoneum; R10.84 Generalized abdominal pain
CPT/HCPCS: 76700; 76830; 76856

== ENCOUNTER 2019-01-15 16:03 | Emergency (ER) | payer MEDICARE, OTHER ==
[2019-01-15] MEDS ORDERED: KETOROLAC 30 MG/ML 1 ML VIAL IVP STA (16:51)
[2019-01-15] MEDS ORDERED: ONDANSETRON 4 MG/2 ML VIAL IVP STA (16:51)
[2019-01-15] MEDS ORDERED: PANTOPRAZOLE 40 MG/10 ML VIAL IVP STA (16:51)
[2019-01-15] MEDS ORDERED: HYDROmorphone 0.5 MG/0.5 ML SYRINGE IVP STA (16:51)
--- NOTE | 2019-01-15 16:53 | ED ---
Weakness HPI - General Chief complaint: Chest Pain Stated complaint: Chest pain, abd pain Time Seen by Provider: 01/15/19 16:14 Source: patient, RN notes reviewed, old records reviewed Mode of arrival: wheelchair Limitations: no limitations - History of Present Illness Initial comments: This is a 53-year-old female the ER for evaluation. Patient severe and diffuse pain. Patient is making diagnostic tests that showed diffuse CA. Pain is been increasing and severe. Patient's very emotional on exam, crying mildly hysterical. Patient does have evaluation of this month and further evaluation with Dr. Mascorro. Patient has no other complaints. No fevers. No nausea vomiting or diarrhea. MD Complaint: generalized weakness (Generalized pain) -: days(s) Location: generalized Severity: moderate Severity scale (1-10): 7 Quality: aching, crushing, sharp Consistency: constant Improves with: none Worsens with: none Context: recent illness Associated Symptoms: loss of appetite - Related Data Home Medications Medication Instructions Recorded Confirmed Albuterol Inhaler [Ventolin Hfa 2 puff INHALATION RT-TID PRN 05/22/18 01/15/19 Inhaler] Lansoprazole [Prevacid] 15 mg PO DAILY 05/22/18 01/15/19 Aspirin 81 mg PO DAILY 11/13/18 01/15/19 Hydrochlorothiazide 25 mg PO DAILY 01/15/19 01/15/19 Lisinopril [Zestril] 10 mg PO DAILY 01/15/19 01/15/19 Metoprolol Tartrate [Lopressor] 25 mg PO HS 01/15/19 01/15/19 Naproxen Sodium [Naproxen Sodium 500 mg PO BID PRN 01/15/19 01/15/19 ER] Allergies Allergy/AdvReac Type Severity Reaction Status Date / Time No Known Allergies Allergy Verified 01/15/19 17:10 Review of Systems ROS Statement: Those systems with pertinent positive or pertinent negative responses have been documented in the HPI. ROS Other: All systems not noted in ROS Statement are negative. Past Medical History Past Medical History: COPD, GERD/Reflux, Hypertension, Musculoskeletal Disorder, Osteoarthritis (OA) Additional Past Medical History / Comment(s): 'ENLARGED KIDNEY" PER PATIENT , OCCASIONAL BLOOD IN STOOL History of Any Multi-Drug Resistant Organisms: None Reported Past Surgical History: Appendectomy, Tubal Ligation Additional Past Surgical History / Comment(s): COLONOSCOPY Past Anesthesia/Blood Transfusion Reactions: No Reported Reaction Past Psychological History: Depression Smoking Status: Current every day smoker - Past Family History Mother Family Medical History: Cancer General Exam Limitations: no limitations General appearance: alert, in no apparent distress Head exam: Present: atraumatic, normocephalic, normal inspection Eye exam: Present: normal appearance, PERRL, EOMI. Absent: scleral icterus, conjunctival injection, periorbital swelling ENT exam: Present: normal exam, mucous membranes moist Neck exam: Present: normal inspection. Absent: tenderness, meningismus, lymphadenopathy Respiratory exam: Present: normal lung sounds bilaterally. Absent: respiratory distress, wheezes, rales, rhonchi, stridor Cardiovascular Exam: Present: regular rate, normal rhythm, normal heart sounds. Absent: systolic murmur, diastolic murmur, rubs, gallop, clicks GI/Abdominal exam: Present: soft, normal bowel sounds. Absent: distended, tenderness, guarding, rebound, rigid Extremities exam: Present: normal inspection, full ROM, normal capillary refill. Absent: tenderness, pedal edema, joint swelling, calf tenderness Back exam: Present: normal inspection Neurological exam: Present: alert, oriented X3, CN II-XII intact Psychiatric exam: Present: normal affect, normal mood Skin exam: Present: warm, dry, intact, normal color. Absent: rash Course Vital Signs 01/15/19 01/15/19 01/15/19 16:05 16:30 17:00 Temperature 98 F Pulse Rate 53 L 49 L 51 L Respiratory 18 19 20 Rate Blood Pressure 173/78 152/80 159/74 O2 Sat by Pulse 99 100 99 Oximetry 01/15/19 01/15/19 17:30 18:00 Temperature Pulse Rate 47 L 46 L Respiratory 18 19 Rate Blood Pressure 140/79 143/75 O2 Sat by Pulse 98 97 Oximetry - Reevaluation(s) Reevaluation #1: 01/15/19 18:23 Medical record is reviewed Reevaluation #2: 01/15/19 18:23 Patient is feeling better Reevaluation #3: 01/15/19 18:[address] Joseph regarding patient, recommends follow-up in the office EKG Findings - EKG Comments: EKG Findings:: EKG shows sinus bradycardia rate of 52, SD 170, QRS 90, QTc 385 Medical Decision Making - Medical Decision Making 53 female the ER for evaluation. Patient has pain, cancer pain pain is now improved. We'll discharge with mild pain medication. Patient will follow with Dr. Joseph for further evaluation and treatment pain - Lab Data Result diagrams: 01/15/19 16:48 01/15/19 16:48 Lab Results 01/15/19 01/15/19 01/15/19 Range/Units 16:48 16:48 16:48 WBC 9.3 (3.8-10.6) k/uL RBC 4.16 (3.80-5.40) m/uL Hgb 12.0 (11.4-16.0) gm/dL Hct 34.2 (34.0-46.0) % MCV 82.3 (80.0-100.0) fL MCH 28.9 (25.0-35.0) pg MCHC 35.1 (31.0-37.0) g/dL RDW 12.6 (11.5-15.5) % Plt Count 255 (150-450) k/uL Neutrophils % 34 % Lymphocytes % 50 % Monocytes % 7 % Eosinophils % 5 % Basophils % 1 % Neutrophils # 3.1 (1.3-7.7) k/uL Lymphocytes # 4.7 (1.0-4.8) k/uL Monocytes # 0.6 (0-1.0) k/uL Eosinophils # 0.5 (0-0.7) k/uL Basophils # 0.1 (0-0.2) k/uL PT 10.1 (9.0-12.0) sec INR 0.9 (<1.2) APTT 24.0 (22.0-30.0) sec D-Dimer 0.42 (<0.60) mg/L FEU Sodium 141 (137-145) mmol/L Potassium 4.2 (3.5-5.1) mmol/L Chloride 108 H (98-107) mmol/L Carbon Dioxide 25 (22-30) mmol/L Anion Gap 8 mmol/L BUN 10 (7-17) mg/dL Creatinine 0.56 (0.52-1.04) mg/dL Est GFR (CKD-EPI)AfAm >90 (>60 ml/min/1.73 sqM) Est GFR (CKD-EPI)NonAf >90 (>60 ml/min/1.73 sqM) Glucose 79 (74-99) mg/dL Calcium 9.7 (8.4-10.2) mg/dL Magnesium 1.9 (1.6-2.3) mg/dL Total Bilirubin 0.9 (0.2-1.3) mg/dL AST 25 (14-36) U/L ALT 36 (9-52) U/L Alkaline Phosphatase 78 (38-126) U/L Troponin I (0.000-0.034) ng/mL NT-Pro-B Natriuret Pep pg/mL Total Protein 8.1 (6.3-8.2) g/dL Albumin 4.5 (3.5-5.0) g/dL Lipase 104 (23-300) U/L 01/15/19 01/15/19 Range/Units 16:48 16:48 WBC (3.8-10.6) k/uL RBC (3.80-5.40) m/uL Hgb (11.4-16.0) gm/dL Hct (34.0-46.0) % MCV (80.0-100.0) fL MCH (25.0-35.0) pg MCHC (31.0-37.0) g/dL RDW (11.5-15.5) % Plt Count (150-450) k/uL Neutrophils % % Lymphocytes % % Monocytes % % Eosinophils % % Basophils % % Neutrophils # (1.3-7.7) k/uL Lymphocytes # (1.0-4.8) k/uL Monocytes # (0-1.0) k/uL Eosinophils # (0-0.7) k/uL Basophils # (0-0.2) k/uL PT (9.0-12.0) sec INR (<1.2) APTT (22.0-30.0) sec D-Dimer (<0.60) mg/L FEU Sodium (137-145) mmol/L Potassium (3.5-5.1) mmol/L Chloride (98-107) mmol/L Carbon Dioxide (22-30) mmol/L Anion Gap mmol/L BUN (7-17) mg/dL Creatinine (0.52-1.04) mg/dL Est GFR (CKD-EPI)AfAm (>60 ml/min/1.73 sqM) Est GFR (CKD-EPI)NonAf (>60 ml/min/1.73 sqM) Glucose (74-99) mg/dL Calcium (8.4-10.2) mg/dL Magnesium (1.6-2.3) mg/dL Total Bilirubin (0.2-1.3) mg/dL AST (14-36) U/L ALT (9-52) U/L Alkaline Phosphatase (38-126) U/L Troponin I <0.012 (0.000-0.034) ng/mL NT-Pro-B Natriuret Pep 51 pg/mL Total Protein (6.3-8.2) g/dL Albumin (3.5-5.0) g/dL Lipase (23-300) U/L Disposition Clinical Impression: Pain, Pain, cancer Disposition: HOME SELF-CARE Condition: Good Instructions (If sedation given, give patient instructions): Pain Management (ED) Is patient prescribed a controlled substance at d/c from ED?: No Referrals: Dane Mascorro Jr, [Primary Care Provider] - 1-2 days
[2019-01-15 16:59] LABS: Basophils # (A) 0.1 k/uL (0-0.2); Basophils % (A) 1 %; Eosinophils # (A) 0.5 k/uL (0-0.7); Eosinophils % (A) 5 %; HCT 34.2 % (34.0-46.0); Lymphocytes # (A) 4.7 k/uL (1.0-4.8); Lymphocytes % (A) 50 %; MCH 28.9 pg (25.0-35.0); MCHC 35.1 g/dL (31.0-37.0); MCV 82.3 fL (80.0-100.0); Mean Platelet Volume 7.1; Monocytes # (A) 0.6 k/uL (0-1.0); Monocytes % (A) 7 %; Neutrophils # (A) 3.1 k/uL (1.3-7.7); Neutrophils % (A) 34 %; Platelet Count 255 k/uL (150-450); RBC 4.16 m/uL (3.80-5.40); RDW 12.6 % (11.5-15.5); WBC 9.3 k/uL (3.8-10.6)
[2019-01-15 17:08] LABS: ALT 36 U/L (9-52); AST 25 U/L (14-36); African American GFR (CKD) >90 (>60 ml/min/1.73 sqM); Albumin 4.5 g/dL (3.5-5.0); Alkaline Phosphatase 78 U/L (38-126); Anion Gap 8 mmol/L; Blood Urea Nitrogen 10 mg/dL (7-17); Calcium 9.7 mg/dL (8.4-10.2); Carbon Dioxide 25 mmol/L (22-30); Chloride 108 mmol/L (98-107); Glucose 79 mg/dL (74-99); Lipase 104 U/L (23-300); Magnesium 1.9 mg/dL (1.6-2.3); Potassium 4.2 mmol/L (3.5-5.1); Sodium 141 mmol/L (137-145); Total Bilirubin 0.9 mg/dL (0.2-1.3); Total Protein 8.1 g/dL (6.3-8.2)
[2019-01-15 17:19] LABS: D-Dimer 0.42 mg/L FEU (<0.60); INR 0.9 (<1.2); Prothrombin Time 10.1 sec (9.0-12.0)
[2019-01-15 18:21] VITALS: RESP 19
[2019-01-15 18:23] VITALS: BP 143/67; PULSE 48; TEMP 97.7
[2019-01-15] MEDS ORDERED: Acetaminophen-Codeine 300-30mg TAB PO STA (18:25)
[2019-01-15] MEDS ORDERED: ACET/COD 300 MG/30 MG STARTER PACK 6 TAB BTL PO STA (18:25)
[2019-01-15] MEDS ORDERED: diphenhydrAMINE 25 MG CAP PO STA (18:52)
== END 2019-01-15 19:02 | disposition home or self-care (01) ==
LOC: EC 16:03
DX: G89.3 Neoplasm related pain (acute) (chronic) (principal); C80.1 Malignant (primary) neoplasm, unspecified; R07.9 Chest pain, unspecified; R10.9 Unspecified abdominal pain; R53.1 Weakness; R63.0 Anorexia; J44.9 Chronic obstructive pulmonary disease, unspecified; K21.9 Gastro-esophageal reflux disease without esophagitis; I10 Essential (primary) hypertension; F17.200 Nicotine dependence, unspecified, uncomplicated; Z90.49 Acquired absence of other specified parts of digestive tract; Z98.51 Tubal ligation status; Z98.890 Other specified postprocedural states; Z79.82 Long term (current) use of aspirin; Z79.899 Other long term (current) drug therapy
CPT/HCPCS: 36415; 93005; 85379; 83880; 80053; 83690; 83735; 84484; 85025; 85610; 85730; 99285; 96374; 96375 ×3; J2405; J1885; C9113; J1170

== ENCOUNTER → 2019-01-15 | Outpatient (CLI) | payer MEDICARE, OTHER ==
--- NOTE | 2019-01-15 17:28 | CT ---
EXAMINATION TYPE: CT lumbar spine wo con DATE OF EXAM: 01/15/2019 4:10 PM COMPARISON: CT lumbar spine August 02, 2017 HISTORY: Pt c/o chronic back pain, burning stomach and chest pain CT DLP: 1704.90 mGycm Automated exposure control for dose reduction was used. Unenhanced CT of the lumbar spine was performed. Bone and soft tissue window settings are submitted as well as coronal and sagittal reconstructions. Exam noted suboptimal secondary to patient's large body habitus. 5 lumbar type vertebra are redemonst rated. Mild disc space narrowing L4-L5 level is stable. Vertebral body heights and disc space heights otherwise are fairly well-maintained. No new large posterior disc herniations are clearly present on sagittal images. Alignment is stable and satisfactory. Mild to moderate multilevel anterior spurring is redemonstrated Axial images at T12-L1 level are felt within normal limits. Axial images at L1-L2 and L2-L3 levels re main within normal limits. Axial images at L3-L4 level redemonstrate mild right greater than left facet degenerative changes wit h mild broad disc bulge minimally effacing anterior thecal sac and causing mild right greater than le ft bilateral anterior inferior neural foraminal narrowing. No significant change from prior. Axial images at the L4-L5 level show moderate right greater than left facet degenerative changes with [id number] broad disc protrusion effacing anterior thecal sac and mild bilateral anterior infe rior neural foraminal narrowing. No significant change from prior. Axial images at the L5-S1 level show moderate to advanced facet degenerative changes bilaterally. Spi nal canal preserved. Bilateral neural foramina are felt patent. Motion artifact on current study jenkins saba is noted. No suspicious incidental retroperitoneal findings are seen. IMPRESSION: Multilevel degenerative changes in lumbar spine as detailed above. No significant change from comparison CT.
== END | disposition home or self-care (01) ==
LOC: RADCTMAIN 15:31
PROVIDERS: ATTEND Family Medicine
DX: M48.061 Spinal stenosis, lumbar region without neurogenic claudication (principal); M51.36 Other intervertebral disc degeneration, lumbar region; M47.816 Spondylosis without myelopathy or radiculopathy, lumbar region; Z88.8 Allergy status to other drugs, medicaments and biological substances
CPT/HCPCS: 72131

== ENCOUNTER 2019-03-22 08:54 | Emergency (ER) | payer MEDICARE, OTHER ==
[2019-03-22] MEDS ORDERED: MORPHINE SULFATE 4 MG/ML SYRINGE IV STA (09:33)
--- NOTE | 2019-03-22 09:36 | ED ---
General Adult HPI - General Chief complaint: Back Pain/Injury Stated complaint: chest & abd pain Time Seen by Provider: 03/22/19 09:00 Source: patient Mode of arrival: ambulatory Limitations: no limitations - History of Present Illness Initial comments: Dictation was produced using [employer] dictation software. please excuse any grammatical, word or spelling errors. Chief Complaint: 53-year-old female past medical history of COPD, hypertension and chronic back pain presents with lower back pain. History of Present Illness: She is 53-year-old female she presents today with lower back pain. Patient states she's been having this symptoms for several months now. She decided to come to the emergency department today because she secondary to having these symptoms. She reports that she tried to ignore it however symptoms did not go away. She localizes the pain to right over her sacral area. She states pain radiates down her left lower extremity. She is able to walk however with some difficulty. Denies any fever, chills or night sweats. Patient has been evaluated for the same symptoms by Dr. Mascorro her primary care physician. She reports that he tried to give her medications for this however patient does not want take any medications anymore. The ROS documented in this emergency department record has been reviewed and confirmed by me. Those systems with pertinent positive or negative responses have been documented in the HPI. All other systems are other negative and/or noncontributory. PHYSICAL EXAM: General Impression: Alert and oriented x3, not in acute distress HEENT: Normocephalic atraumatic, extra-ocular movements intact, pupils equal and reactive to light bilaterally, mucous membranes moist. Cardiovascular: Heart regular rate and rhythm, S1&S2 audible, no murmurs, rubs or gallops Chest: Lungs clear to auscultation bilaterally, no rhonchi, no wheeze, no rales Abdomen: Bowel sounds present, abdomen soft, non-tender, non-distended, no organomegaly Musculoskeletal: Pulses present and equal in all extremities, no peripheral edema and tenderness to palpation over the sacrum Motor: no focal deficits noted Neurological: CN II-XII grossly intact, no focal motor or sensory deficits noted Skin: Intact with no visualized rashes Psych: Tearful ED course: 53-year-old female presents with acute on chronic back pain. Local presentation consistent with musculoskeletal lower back pain. Vital signs upon arrival are within acceptable limits. She noted a CT of her lumbar spine performed 2 months ago showing degenerative changes in the lumbar spine. Patient also had a pelvic ultrasound performed in November of this year showing uterine fibroids. Patient told the nurse that triaged her that she is having chest pain however to me she did not complain of any chest pain. Patient was ambulatory. She walked to the bathroom without any significant complications. Patient has reproducible pain with palpation to her sacral area.To evaluation obtained. CBC, coag panel, metabolic panel is unremarkable. Urinalysis is negative. CT of the abdomen and pelvis shows small hiatal hernia, no other acute processes noted at this time. She does have findings of degenerative disc disease. Patient is well-appearing at this time. Patient is discharged. She is given outpatient referral to orthopedic spine for outpatient workup of lower back pain. EKG interpretation: Ventricular rate 52, sinus bradycardia,. Interval 154, care is 82, QTc 388. No MA prolongation, no QTC prolongation, no ST or T-wave changes noted. . Overall, this EKG is unremarkable - Related Data Home Medications Medication Instructions Recorded Confirmed Lansoprazole [Prevacid] 15 mg PO DAILY 05/22/18 03/22/19 Lisinopril [Zestril] 10 mg PO DAILY 01/15/19 03/22/19 Diclofenac Sodium [Diclofenac 100 mg PO BID 03/22/19 03/22/19 Sodium ER] Losartan/Hydrochlorothiazide 1 tab PO DAILY 03/22/19 03/22/19 [Losartan-Hctz 100-25 mg Tab] Previous Rx's Medication Instructions Recorded HYDROcodone/APAP 5-325MG [[place] 1 tab PO Q6HR PRN 3 Days #6 tab 03/22/19 5-325] Allergies Allergy/AdvReac Type Severity Reaction Status Date / Time No Known Allergies Allergy Verified 03/22/19 09:08 Review of Systems ROS Statement: Those systems with pertinent positive or pertinent negative responses have been documented in the HPI. ROS Other: All systems not noted in ROS Statement are negative. Past Medical History Past Medical History: COPD, GERD/Reflux, Hypertension, Musculoskeletal Disorder, Osteoarthritis (OA) Additional Past Medical History / Comment(s): 'ENLARGED KIDNEY" PER PATIENT , OCCASIONAL BLOOD IN STOOL History of Any Multi-Drug Resistant Organisms: None Reported Past Surgical History: Appendectomy, Tubal Ligation Additional Past Surgical History / Comment(s): COLONOSCOPY Past Anesthesia/Blood Transfusion Reactions: No Reported Reaction Past Psychological History: Depression Smoking Status: Current every day smoker Past Alcohol Use History: None Reported Past Drug Use History: None Reported - Past Family History Mother Family Medical History: Cancer General Exam Limitations: no limitations Course Vital Signs 03/22/19 03/22/19 03/22/19 08:59 09:02 09:50 Temperature 97.7 F Pulse Rate 55 L 59 L Pulse Rate [ 55 L Title Specialist ] Respiratory 18 16 Rate Blood Pressure 170/129 146/94 O2 Sat by Pulse 100 97 Oximetry 03/22/19 11:25 Temperature 98.4 F Pulse Rate 60 Pulse Rate [ Title Specialist ] Respiratory 18 Rate Blood Pressure 122/75 O2 Sat by Pulse 99 Oximetry Medical Decision Making - Lab Data Result diagrams: 03/22/19 09:15 03/22/19 09:15 Lab Results 03/22/19 03/22/19 03/22/19 Range/Units 09:15 09:15 09:15 WBC 6.7 (3.8-10.6) k/uL RBC 4.38 (3.80-5.40) m/uL Hgb 12.9 (11.4-16.0) gm/dL Hct 36.0 (34.0-46.0) % MCV 82.3 (80.0-100.0) fL MCH 29.4 (25.0-35.0) pg MCHC 35.8 (31.0-37.0) g/dL RDW 13.6 (11.5-15.5) % Plt Count 294 (150-450) k/uL Neutrophils % 34 % Lymphocytes % 48 % Monocytes % 7 % Eosinophils % 5 % Basophils % 3 % Neutrophils # 2.3 (1.3-7.7) k/uL Lymphocytes # 3.3 (1.0-4.8) k/uL Monocytes # 0.5 (0-1.0) k/uL Eosinophils # 0.3 (0-0.7) k/uL Basophils # 0.2 (0-0.2) k/uL Manual Slide Review Performed Hyperchromasia Slight Poikilocytosis (manual Present PT 9.9 (9.0-12.0) sec INR 0.9 (<1.2) APTT 25.3 (22.0-30.0) sec Sodium 142 (137-145) mmol/L Potassium 4.2 (3.5-5.1) mmol/L Chloride 109 H (98-107) mmol/L Carbon Dioxide 23 (22-30) mmol/L Anion Gap 10 mmol/L BUN 10 (7-17) mg/dL Creatinine 0.58 (0.52-1.04) mg/dL Est GFR (CKD-EPI)AfAm >90 (>60 ml/min/1.73 sqM) Est GFR (CKD-EPI)NonAf >90 (>60 ml/min/1.73 sqM) Glucose 105 H (74-99) mg/dL Calcium 9.5 (8.4-10.2) mg/dL Total Bilirubin 0.6 (0.2-1.3) mg/dL AST 23 (14-36) U/L ALT 22 (9-52) U/L Alkaline Phosphatase 78 (38-126) U/L Total Protein 8.0 (6.3-8.2) g/dL Albumin 4.1 (3.5-5.0) g/dL Urine Color Urine Appearance (Clear) Urine pH (5.0-8.0) Ur Specific [place] (1.001-1.035) Urine Protein (Negative) Urine Glucose (UA) (Negative) Urine Ketones (Negative) Urine Blood (Negative) Urine Nitrite (Negative) Urine Bilirubin (Negative) Urine Urobilinogen (<2.0) mg/dL Ur Leukocyte Esterase (Negative) 03/22/19 Range/Units 09:15 WBC (3.8-10.6) k/uL RBC (3.80-5.40) m/uL Hgb (11.4-16.0) gm/dL Hct (34.0-46.0) % MCV (80.0-100.0) fL MCH (25.0-35.0) pg MCHC (31.0-37.0) g/dL RDW (11.5-15.5) % Plt Count (150-450) k/uL Neutrophils % % Lymphocytes % % Monocytes % % Eosinophils % % Basophils % % Neutrophils # (1.3-7.7) k/uL Lymphocytes # (1.0-4.8) k/uL Monocytes # (0-1.0) k/uL Eosinophils # (0-0.7) k/uL Basophils # (0-0.2) k/uL Manual Slide Review Hyperchromasia Poikilocytosis (manual PT (9.0-12.0) sec INR (<1.2) APTT (22.0-30.0) sec Sodium (137-145) mmol/L Potassium (3.5-5.1) mmol/L Chloride (98-107) mmol/L Carbon Dioxide (22-30) mmol/L Anion Gap mmol/L BUN (7-17) mg/dL Creatinine (0.52-1.04) mg/dL Est GFR (CKD-EPI)AfAm (>60 ml/min/1.73 sqM) Est GFR (CKD-EPI)NonAf (>60 ml/min/1.73 sqM) Glucose (74-99) mg/dL Calcium (8.4-10.2) mg/dL Total Bilirubin (0.2-1.3) mg/dL AST (14-36) U/L ALT (9-52) U/L Alkaline Phosphatase (38-126) U/L Total Protein (6.3-8.2) g/dL Albumin (3.5-5.0) g/dL Urine Color Yellow Urine Appearance Clear (Clear) Urine pH 5.5 (5.0-8.0) Ur Specific [place] 1.017 (1.001-1.035) Urine Protein Negative (Negative) Urine Glucose (UA) Negative (Negative) Urine Ketones Negative (Negative) Urine Blood Negative (Negative) Urine Nitrite Negative (Negative) Urine Bilirubin Negative (Negative) Urine Urobilinogen <2.0 (<2.0) mg/dL Ur Leukocyte Esterase Negative (Negative) Disposition Clinical Impression: Back pain Disposition: HOME SELF-CARE Condition: Good Instructions (If sedation given, give patient instructions): Acute Low Back Pain (ED) Prescriptions: HYDROcodone/APAP 5-325MG [[place] 5-325] 1 tab PO Q6HR PRN 3 Days #6 tab PRN Reason: Severe Pain Is patient prescribed a controlled substance at d/c from ED?: Yes Referrals: Britney London DO [Doctor of Osteopathic Medicine] - 1-2 days Time of Disposition: 11:36
[2019-03-22 09:55] LABS: Appearance,Urine Clear (Clear); Bilirubin,Urine Negative (Negative); Blood,Urine Negative (Negative); Color,Urine Yellow; Glucose,Urine (UA) Negative (Negative); Ketones,Urine Negative (Negative); Leukocyte Esterase,Urine Negative (Negative); Nitrite,Urine Negative (Negative); PH, Urine 5.5 (5.0-8.0); Protein,Urine Negative (Negative); Specific Gravity,Urine 1.017 (1.001-1.035); Urobilinogen,Urine <2.0 mg/dL (<2.0)
[2019-03-22 10:04] LABS: INR 0.9 (<1.2); Partial Thromboplastin Time 25.3 sec (22.0-30.0); Prothrombin Time 9.9 sec (9.0-12.0)
[2019-03-22 10:11] LABS: ALT 22 U/L (9-52); AST 23 U/L (14-36); African American GFR (CKD) >90 (>60 ml/min/1.73 sqM); Albumin 4.1 g/dL (3.5-5.0); Alkaline Phosphatase 78 U/L (38-126); Anion Gap 10 mmol/L; Blood Urea Nitrogen 10 mg/dL (7-17); Calcium 9.5 mg/dL (8.4-10.2); Carbon Dioxide 23 mmol/L (22-30); Chloride 109 mmol/L (98-107); Glucose 105 mg/dL (74-99); Non-African American GFR(CKD) >90 (>60 ml/min/1.73 sqM); Potassium 4.2 mmol/L (3.5-5.1); Sodium 142 mmol/L (137-145); Total Bilirubin 0.6 mg/dL (0.2-1.3)
[2019-03-22 10:20] LABS: Basophils # (A) 0.2 k/uL (0-0.2); Basophils % (A) 3 %; Eosinophils # (A) 0.3 k/uL (0-0.7); Eosinophils % (A) 5 %; HGB 12.9 gm/dL (11.4-16.0); Hyperchromasia Slight; Lymphocytes # (A) 3.3 k/uL (1.0-4.8); Lymphocytes % (A) 48 %; MCH 29.4 pg (25.0-35.0); MCHC 35.8 g/dL (31.0-37.0); MCV 82.3 fL (80.0-100.0); Mean Platelet Volume 7.5; Monocytes # (A) 0.5 k/uL (0-1.0); Monocytes % (A) 7 %; Neutrophils # (A) 2.3 k/uL (1.3-7.7); Neutrophils % (A) 34 %; Platelet Count 294 k/uL (150-450); RBC 4.38 m/uL (3.80-5.40); RDW 13.6 % (11.5-15.5); WBC 6.7 k/uL (3.8-10.6)
[2019-03-22 10:36] LABS: Poikilocytosis (M) Present
--- NOTE | 2019-03-22 11:03 | CT ---
EXAMINATION TYPE: CT ChestAbdPelvis w con DATE OF EXAM: 03/22/2019 COMPARISON: Previous CT scan of the abdomen and pelvis dated 06/11/2018. HISTORY: Pelvic pain CT DLP: 2254.4 mGycm Automated exposure control for dose reduction was used. TECHNIQUE: Helical acquisition through the abdomen and pelvis was obtained without oral contrast but following the intravenous administration of 100 mL of Isovue 300. The data was formatted in the axia l, coronal and sagittal projections. FINDINGS: The lungs are clear. There is nonspecific adenopathy in the axilla bilaterally. There is no significant mediastinal or hil ar adenopathy. There is no pleural or pericardial fluid. There is a very small sliding hiatal hernia. Within the abdomen, the liver is upper limits of normal in size measuring 17.1 cm. The spleen and gal lbladder are normal. Both adrenal glands are normal. Both kidneys demonstrate function and appear morphologically normal. Pancreas is unremarkable. There is no significant retroperitoneal, iliac or inguinal adenopathy. The bladder is nondistended. The uterus and ovaries are unremarkable. There is no significant diverticular change and there is no radiographic evidence of diverticulitis. The appendix is not visualized. Small bowel loops are normal in caliber. There is no free fluid and no free air. There is degenerative disc disease, hypertrophic spondylosis and facet arthropathy within the spine. IMPRESSION: 1. SMALL HIATAL HERNIA. 2. LIVER AT THE UPPER LIMITS OF NORMAL IN SIZE. 3. NO ACUTE INFLAMMATORY ABNORMALITY.
[2019-03-22 11:26] VITALS: BP 122/75; PULSE 60; RESP 18; TEMP 98.4
== END 2019-03-22 11:25 | disposition home or self-care (01) ==
LOC: EC 08:54
DX: M54.5 Low back pain (principal); I10 Essential (primary) hypertension; K21.9 Gastro-esophageal reflux disease without esophagitis; R00.1 Bradycardia, unspecified; F17.200 Nicotine dependence, unspecified, uncomplicated; Z79.899 Other long term (current) drug therapy; K44.9 Diaphragmatic hernia without obstruction or gangrene
CPT/HCPCS: 36415; 93005; 80053; 85025; 85610; 85730; 81003; 71260; 74177; 99284; 96374; J2270; Q9967

== ENCOUNTER 2019-03-31 14:36 | Emergency (ER) | payer MEDICARE, OTHER ==
[2019-03-31 14:40] VITALS: RESP 18; TEMP 98.2
[2019-03-31] MEDS ORDERED: NITROGLYCERIN OINT 1 INCH/GM PACKET TOPICAL STA (15:59)
[2019-03-31] MEDS ORDERED: ASPIRIN 81 MG PO STA (15:59)
[2019-03-31] MEDS ORDERED: MORPHINE SULFATE 4 MG/ML SYRINGE IV STA (15:59)
--- NOTE | 2019-03-31 16:07 | ED ---
General Adult HPI - General Chief complaint: Chest Pain Stated complaint: Chest Pain Time Seen by Provider: 03/31/19 15:35 Source: patient, RN notes reviewed Mode of arrival: wheelchair Limitations: no limitations - History of Present Illness Initial comments: Patient is a pleasant 53-year-old male presenting to the emergency Department with complaints of chest and lower abdominal discomfort. Symptoms have been present for years. Patient has been seen in the hospital for previously. 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 Patient has been told she has fibroids in her uterus however they're not severe enough to take it out. Patient's complaining of aching all over. Patient states chest discomfort is also chronic and also lasting for years. No shortness of breath. Patient has difficult time describing her chest discomfort. - Related Data Home Medications Medication Instructions Recorded Confirmed Lansoprazole [Prevacid] 15 mg PO DAILY 05/22/18 03/31/19 Lisinopril [Zestril] 10 mg PO DAILY 01/15/19 03/31/19 Diclofenac Sodium [Diclofenac 100 mg PO BID 03/22/19 03/31/19 Sodium ER] Losartan/Hydrochlorothiazide 1 tab PO DAILY 03/22/19 03/31/19 [Losartan-Hctz 100-25 mg Tab] Previous Rx's Medication Instructions Recorded HYDROcodone/APAP 5-325MG [[place] 1 tab PO Q6HR PRN 3 Days #6 tab 03/22/19 5-325] Allergies Allergy/AdvReac Type Severity Reaction Status Date / Time No Known Allergies Allergy Verified 03/31/19 15:41 Review of Systems ROS Statement: Those systems with pertinent positive or pertinent negative responses have been documented in the HPI. ROS Other: All systems not noted in ROS Statement are negative. Eyes: Denies: eye pain ENT: Denies: ear pain Respiratory: Denies: dyspnea Cardiovascular: Reports: as per HPI, chest pain Endocrine: Denies: fatigue Gastrointestinal: Reports: as per HPI, abdominal pain. Denies: nausea, vomiting Genitourinary: Denies: dysuria Musculoskeletal: Denies: back pain Skin: Denies: rash Neurological: Denies: weakness Past Medical History Past Medical History: COPD, GERD/Reflux, Hypertension, Musculoskeletal Disorder, Osteoarthritis (OA) Additional Past Medical History / Comment(s): 'ENLARGED KIDNEY" PER PATIENT , OCCASIONAL BLOOD IN STOOL History of Any Multi-Drug Resistant Organisms: None Reported Past Surgical History: Appendectomy, Tubal Ligation Additional Past Surgical History / Comment(s): COLONOSCOPY Past Anesthesia/Blood Transfusion Reactions: No Reported Reaction Past Psychological History: Depression Smoking Status: Current every day smoker Past Alcohol Use History: None Reported Past Drug Use History: None Reported - Past Family History Mother Family Medical History: Cancer General Exam Limitations: no limitations General appearance: alert, in no apparent distress Head exam: Present: atraumatic Eye exam: Present: normal appearance Neck exam: Present: normal inspection Respiratory exam: Present: normal lung sounds bilaterally. Absent: chest wall tenderness Cardiovascular Exam: Present: regular rate, normal rhythm Expanded Peripheral pulses: 2+: Radial (R), Radial (L), Dorsalis Pedis (R), Dorsalis Pedis (L) GI/Abdominal exam: Present: soft. Absent: distended, tenderness, guarding, rebound, rigid, pulsatile mass Extremities exam: Present: normal inspection. Absent: pedal edema, calf tenderness Neurological exam: Present: alert Psychiatric exam: Present: normal affect, normal mood Skin exam: Present: normal color Course Vital Signs 03/31/19 03/31/19 14:38 16:25 Temperature 98.2 F Pulse Rate 66 56 L Respiratory 18 18 Rate Blood Pressure 161/84 126/103 O2 Sat by Pulse 100 100 Oximetry EKG Findings - EKG Comments: EKG Findings:: Sinus bradycardia 57. [place] 162. QRS 88. QT 410. QTc 399. Normal axis. LVH criteria. No acute ST change. Medical Decision Making - Medical Decision Making Patient reevaluated and resting comfortably in bed. Patient has improvement of symptoms. Patient again states her symptoms are chronic. Case was discussed in detail with Dr. Ayala who is very familiar with this patient and recommends discharge and will follow-up with her tomorrow. Patient updated. - Lab Data Result diagrams: 03/31/19 15:30 03/31/19 15:30 Lab Results 03/31/19 03/31/19 03/31/19 Range/Units 15:30 15:30 15:30 WBC 7.6 (3.8-10.6) k/uL RBC 4.32 (3.80-5.40) m/uL Hgb 12.9 (11.4-16.0) gm/dL Hct 34.8 (34.0-46.0) % MCV 80.5 (80.0-100.0) fL MCH 30.0 (25.0-35.0) pg MCHC 37.2 H (31.0-37.0) g/dL RDW 14.1 (11.5-15.5) % Plt Count 271 (150-450) k/uL Neutrophils % 41 % Lymphocytes % 42 % Monocytes % 7 % Eosinophils % 4 % Basophils % 4 % Neutrophils # 3.1 (1.3-7.7) k/uL Lymphocytes # 3.2 (1.0-4.8) k/uL Monocytes # 0.5 (0-1.0) k/uL Eosinophils # 0.3 (0-0.7) k/uL Basophils # 0.3 H (0-0.2) k/uL Hyperchromasia Slight PT 10.0 (9.0-12.0) sec INR 0.9 (<1.2) APTT 24.6 (22.0-30.0) sec Sodium 142 (137-145) mmol/L Potassium 4.9 (3.5-5.1) mmol/L Chloride 107 (98-107) mmol/L Carbon Dioxide 25 (22-30) mmol/L Anion Gap 10 mmol/L BUN 10 (7-17) mg/dL Creatinine 0.60 (0.52-1.04) mg/dL Est GFR (CKD-EPI)AfAm >90 (>60 ml/min/1.73 sqM) Est GFR (CKD-EPI)NonAf >90 (>60 ml/min/1.73 sqM) Glucose 82 (74-99) mg/dL Calcium 9.7 (8.4-10.2) mg/dL Magnesium 1.9 (1.6-2.3) mg/dL Total Bilirubin 1.1 (0.2-1.3) mg/dL AST 36 (14-36) U/L ALT 22 (9-52) U/L Alkaline Phosphatase 74 (38-126) U/L Troponin I (0.000-0.034) ng/mL Total Protein 8.8 H (6.3-8.2) g/dL Albumin 4.5 (3.5-5.0) g/dL Urine Color Urine Appearance (Clear) Urine pH (5.0-8.0) Ur Specific [place] (1.001-1.035) Urine Protein (Negative) Urine Glucose (UA) (Negative) Urine Ketones (Negative) Urine Blood (Negative) Urine Nitrite (Negative) Urine Bilirubin (Negative) Urine Urobilinogen (<2.0) mg/dL Ur Leukocyte Esterase (Negative) 03/31/19 03/31/19 Range/Units 15:30 15:30 WBC (3.8-10.6) k/uL RBC (3.80-5.40) m/uL Hgb (11.4-16.0) gm/dL Hct (34.0-46.0) % MCV (80.0-100.0) fL MCH (25.0-35.0) pg MCHC (31.0-37.0) g/dL RDW (11.5-15.5) % Plt Count (150-450) k/uL Neutrophils % % Lymphocytes % % Monocytes % % Eosinophils % % Basophils % % Neutrophils # (1.3-7.7) k/uL Lymphocytes # (1.0-4.8) k/uL Monocytes # (0-1.0) k/uL Eosinophils # (0-0.7) k/uL Basophils # (0-0.2) k/uL Hyperchromasia PT (9.0-12.0) sec INR (<1.2) APTT (22.0-30.0) sec Sodium (137-145) mmol/L Potassium (3.5-5.1) mmol/L Chloride (98-107) mmol/L Carbon Dioxide (22-30) mmol/L Anion Gap mmol/L BUN (7-17) mg/dL Creatinine (0.52-1.04) mg/dL Est GFR (CKD-EPI)AfAm (>60 ml/min/1.73 sqM) Est GFR (CKD-EPI)NonAf (>60 ml/min/1.73 sqM) Glucose (74-99) mg/dL Calcium (8.4-10.2) mg/dL Magnesium (1.6-2.3) mg/dL Total Bilirubin (0.2-1.3) mg/dL AST (14-36) U/L ALT (9-52) U/L Alkaline Phosphatase (38-126) U/L Troponin I <0.012 (0.000-0.034) ng/mL Total Protein (6.3-8.2) g/dL Albumin (3.5-5.0) g/dL Urine Color Yellow Urine Appearance Clear (Clear) Urine pH 6.5 (5.0-8.0) Ur Specific [place] 1.013 (1.001-1.035) Urine Protein Negative (Negative) Urine Glucose (UA) Negative (Negative) Urine Ketones Negative (Negative) Urine Blood Negative (Negative) Urine Nitrite Negative (Negative) Urine Bilirubin Negative (Negative) Urine Urobilinogen <2.0 (<2.0) mg/dL Ur Leukocyte Esterase Negative (Negative) - Radiology Data Radiology results: image reviewed (Chest and abdominal x-rays reveal no acute process) Disposition Clinical Impression: Chest pain, Abdominal pain Disposition: HOME SELF-CARE Condition: Stable Instructions (If sedation given, give patient instructions): Chest Pain (ED), Abdominal Pain (ED) Additional Instructions: Please follow-up with Dr. Ayala tomorrow. Return for change or worsening symptoms or other concerns. Is patient prescribed a controlled substance at d/c from ED?: No Referrals: Dane Mascorro Jr, [Primary Care Provider] - 1-2 days Time of Disposition: 17:12
[2019-03-31 16:15] LABS: Appearance,Urine Clear (Clear); Bilirubin,Urine Negative (Negative); Blood,Urine Negative (Negative); Color,Urine Yellow; Glucose,Urine (UA) Negative (Negative); Ketones,Urine Negative (Negative); Leukocyte Esterase,Urine Negative (Negative); Nitrite,Urine Negative (Negative); PH, Urine 6.5 (5.0-8.0); Protein,Urine Negative (Negative); Specific Gravity,Urine 1.013 (1.001-1.035); Urobilinogen,Urine <2.0 mg/dL (<2.0)
[2019-03-31 16:23] LABS: Albumin 4.5 g/dL (3.5-5.0); Anion Gap 10 mmol/L; Carbon Dioxide 25 mmol/L (22-30); Chloride 107 mmol/L (98-107); Glucose 82 mg/dL (74-99); Sodium 142 mmol/L (137-145); Total Protein 8.8 g/dL (6.3-8.2)
[2019-03-31 16:24] LABS: ALT 22 U/L (9-52); AST 36 U/L (14-36); African American GFR (CKD) >90 (>60 ml/min/1.73 sqM); Alkaline Phosphatase 74 U/L (38-126); Blood Urea Nitrogen 10 mg/dL (7-17); Calcium 9.7 mg/dL (8.4-10.2); INR 0.9 (<1.2); Magnesium 1.9 mg/dL (1.6-2.3); Partial Thromboplastin Time 24.6 sec (22.0-30.0); Total Bilirubin 1.1 mg/dL (0.2-1.3)
[2019-03-31 16:30] LABS: Potassium 4.9 mmol/L (3.5-5.1)
--- NOTE | 2019-03-31 16:30 | XR ---
EXAMINATION TYPE: XR chest 2V DATE OF EXAM: 03/31/2019 COMPARISON: 10/03/2018 HISTORY: Chest pain TECHNIQUE: Chest is examined in the frontal and lateral views compared to 10/03/2018 FINDINGS: The heart size is normal. The pulmonary vasculature is normal. The lungs are clear. Spondyl osis within the thoracic spine. IMPRESSION: 1. No acute pulmonary process.
--- NOTE | 2019-03-31 16:31 | XR ---
EXAMINATION TYPE: XR abdomen 1V DATE OF EXAM: 03/31/2019 COMPARISON: 11/10/2017 INDICATION: Pain TECHNIQUE: Single view abdomen upright view FINDINGS: There is a normal bowel gas pattern. Psoas margins are normal. No organomegaly is present. No free air is evident. No suspicious differential air-fluid levels are present. No mass effect is ev ident. No suspicious calcifications. IMPRESSION: 1. Unremarkable Abdomen
[2019-03-31 16:33] LABS: Basophils # (A) 0.3 k/uL (0-0.2); Basophils % (A) 4 %; Eosinophils # (A) 0.3 k/uL (0-0.7); Eosinophils % (A) 4 %; HCT 34.8 % (34.0-46.0); HGB 12.9 gm/dL (11.4-16.0); Hyperchromasia Slight; Lymphocytes # (A) 3.2 k/uL (1.0-4.8); Lymphocytes % (A) 42 %; MCHC 37.2 g/dL (31.0-37.0); MCV 80.5 fL (80.0-100.0); Mean Platelet Volume 8.2; Monocytes # (A) 0.5 k/uL (0-1.0); Monocytes % (A) 7 %; Neutrophils # (A) 3.1 k/uL (1.3-7.7); Neutrophils % (A) 41 %; Platelet Count 271 k/uL (150-450); RBC 4.32 m/uL (3.80-5.40); RDW 14.1 % (11.5-15.5); WBC 7.6 k/uL (3.8-10.6)
[2019-03-31 17:36] VITALS: BP 140/80; PULSE 52
== END 2019-03-31 17:42 | disposition home or self-care (01) ==
LOC: EC 14:36
DX: R07.89 Other chest pain (principal); R10.30 Lower abdominal pain, unspecified; K21.9 Gastro-esophageal reflux disease without esophagitis; I10 Essential (primary) hypertension; D25.9 Leiomyoma of uterus, unspecified; F17.200 Nicotine dependence, unspecified, uncomplicated; Z90.49 Acquired absence of other specified parts of digestive tract; Z98.51 Tubal ligation status; Z98.890 Other specified postprocedural states; Z79.1 Long term (current) use of non-steroidal anti-inflammatories (NSAID); Z79.899 Other long term (current) drug therapy
CPT/HCPCS: 36415; 93005; 80053; 83735; 84484; 85025; 85610; 85730; 81003; 71046; 74018; 99285; 96374; J2270

== ENCOUNTER → 2019-04-04 | Outpatient (CLI) | payer MEDICARE, OTHER ==
[2019-04-07 12:35] LABS: HLA B27 NEGATIVE
== END | disposition home or self-care (01) ==
LOC: LABWHC1 14:50
PROVIDERS: ATTEND Family Medicine
DX: M54.5 Low back pain (principal)
CPT/HCPCS: 36415; 86812

== ENCOUNTER → 2019-04-17 | Outpatient (CLI) | payer MEDICARE, OTHER ==
--- NOTE | 2019-04-17 16:49 | US ---
EXAMINATION TYPE: US venous doppler duplex LE RT DATE OF EXAM: 04/17/2019 3:48 PM COMPARISON: NONE CLINICAL HISTORY: EVALUATE FOR DVT/M25.561. SIDE PERFORMED: Right TECHNIQUE: The lower extremity deep venous system is examined utilizing real time linear array sonog emily with graded compression, doppler sonography and color-flow sonography. VESSELS IMAGED: External Iliac Vein (EIV) Common Femoral Vein Deep Femoral Vein Greater Saphenous Vein * Femoral Vein Popliteal Vein Small Saphenous Vein * Proximal Calf Veins (* superficial vessels) Right Leg: Negative for DVT GSV and PTV's also scanned per order. IMPRESSION: No evidence of deep venous thrombosis in the right leg.
== END | disposition home or self-care (01) ==
LOC: RADUSWWP 15:16
PROVIDERS: ATTEND Orthopaedic Surgery
DX: M25.561 Pain in right knee (principal); M25.562 Pain in left knee; M54.32 Sciatica, left side; M54.5 Low back pain